=== PATIENT | male | born 1955 | race Asian ===

== ENCOUNTER 2016-12-12 08:18 | Outpatient (RCR) | payer MEDICARE | END 2016-12-27 | LOC: M PT 08:18 | PROVIDERS: ATTEND Orthopaedic Surgery | DX: Z51.89 Encounter for other specified aftercare (principal); S83.282A Other tear of lateral meniscus, current injury, left knee, initial encounter; S83.242A Other tear of medial meniscus, current injury, left knee, initial encounter; M17.12 Unilateral primary osteoarthritis, left knee; Y92.9 Unspecified place or not applicable | CPT/HCPCS: 97110; G8978; G8979; G8980 ==

== ENCOUNTER → 2017-03-28 | Outpatient (REF) | payer MEDICARE, MEDICAID ==
[2017-03-28 17:40] LABS: MEAN CORPUSCULAR HEMOGLOBIN 30.8 pg (27.0-33.0); MEAN CORPUSCULAR HGB CONC 33.1 g/dl (32.0-36.5); MEAN CORPUSCULAR VOLUME 92.9 fl (80.0-96.0); RED CELL DISTRIBUTION WIDTH 13.9 % (11.5-14.5); WHITE BLOOD COUNT 6.6 K/mm3 (4.0-10.0)
[2017-03-28 17:58] LABS: ALBUMIN/GLOBULIN RATIO 1.08 (1.00-1.93); BILIRUBIN,TOTAL 0.4 MG/DL (0.2-1.0); CALCIUM LEVEL 9.6 MG/DL (8.8-10.2); CREATININE FOR GFR 1.52 MG/DL (0.70-1.30); POTASSIUM SERUM 4.7 MEQ/L (3.5-5.1); TOTAL PROTEIN 7.7 GM/DL (6.4-8.2)
== END ==
LOC: M SFHCLERA 11:03
PROVIDERS: ATTEND Family Medicine
DX: I50.22 Chronic systolic (congestive) heart failure (principal); E11.22 Type 2 diabetes mellitus with diabetic chronic kidney disease; E11.69 Type 2 diabetes mellitus with other specified complication; E03.9 Hypothyroidism, unspecified
CPT/HCPCS: 80053; 80061; 83036; 83880; 84443; 85027; G0463

== ENCOUNTER → 2017-06-28 | Outpatient (REF) | payer MEDICARE, MEDICAID | LOC: M SFHCLERA 10:18 | PROVIDERS: ATTEND Family Medicine | DX: E11.22 Type 2 diabetes mellitus with diabetic chronic kidney disease (principal) | CPT/HCPCS: 83036; G0463 ==

== ENCOUNTER → 2017-12-14 | Outpatient (REF) | payer MEDICARE, MEDICAID ==
[2017-12-14 12:08] LABS: BASO # 0.1 10^3/uL (0.0-0.2); BASO % 0.4 % (0.0-1.0); EOS # 0.3 10^3/uL (0.0-0.50); EOS % 2.5 % (0.0-3.0); HEMATOCRIT 40.1 % (42.0-52.0); IMMATURE GRANULOCYTE # 0.3 10^3/uL (0-0); LYMPH # 2.4 10^3/uL (1.5-4.5); LYMPH % 19.7 % (24.0-44.0); MEAN CORPUSCULAR HEMOGLOBIN 28.6 pg (27.0-33.0); MEAN CORPUSCULAR HGB CONC 32.4 g/dl (32.0-36.5); MEAN CORPUSCULAR VOLUME 88.3 fl (80.0-96.0); MONO # 0.7 10^3/uL (0.0-0.8); MONO % 5.3 % (0.0-5.0); NEUTROPHILS # 8.7 10^3/uL (1.8-7.7); NEUTROPHILS % 70.1 % (36.0-66.0); PLATELET COUNT, AUTOMATED 415 10^3/uL (150-450); RED BLOOD COUNT 4.54 10^6/uL (4.30-6.10); RED CELL DISTRIBUTION WIDTH 13.8 % (11.5-14.5); WHITE BLOOD COUNT 12.4 10^3/uL (4.0-10.0)
[2017-12-14 12:26] LABS: ESTIMATED AVERAGE GLUCOSE 243 MG/DL (60-110); HEMOGLOBIN A1c 10.1 %
[2017-12-14 12:28] LABS: ALBUMIN 3.3 GM/DL (3.2-5.2); ALBUMIN/GLOBULIN RATIO 0.67 (1.00-1.93); ALKALINE PHOSPHATASE 121 U/L (45-117); ALT/SGPT 73 U/L (12-78); ANION GAP 9 MEQ/L (8-16); AST/SGOT 25 U/L (7-37); BILIRUBIN,TOTAL 0.3 MG/DL (0.2-1.0); BLOOD UREA NITROGEN 40 MG/DL (7-18); CALCIUM LEVEL 9.9 MG/DL (8.8-10.2); CARBON DIOXIDE LEVEL 27 MEQ/L (21-32); CHLORIDE LEVEL 100 MEQ/L (98-107); CHOLESTEROL LEVEL 157 MG/DL (<200); CHOLESTEROL RISK RATIO 4.906 (<5); CREATININE FOR GFR 1.66 MG/DL (0.70-1.30); GLOMERULAR FILTRATION RATE 45.2 (>49); GLUCOSE, FASTING 126 MG/DL (80-110); HDL CHOLESTEROL 32 MG/DL (>40); LDL CHOLESTEROL 82.2 MG/DL (<100); NON-HDL-C 125 MG/DL; SODIUM LEVEL 136 MEQ/L (136-145); TOTAL PROTEIN 8.2 GM/DL (6.4-8.2); TRIGLYCERIDES LEVEL 214 MG/DL (<150)
[2017-12-14 12:42] LABS: POTASSIUM SERUM 5.8 MEQ/L (3.5-5.1)
[2017-12-14 12:54] LABS: MALB URINE SIEMENS 6.7 MG/L; MAU/CREAT RATIO 4.3 MCG/MG (0.0-30.0)
== END ==
LOC: M SFHCLERA 09:17
DX: L03.312 Cellulitis of back [any part except buttock and flank] (principal); E11.65 Type 2 diabetes mellitus with hyperglycemia
CPT/HCPCS: 84443

== ENCOUNTER → 2017-12-15 | Outpatient (CLI) | payer MEDICARE, MEDICAID ==
[2017-12-15 09:46] LABS: POTASSIUM SERUM 4.8 MEQ/L (3.5-5.1)
== END ==
LOC: M LAB 08:55
DX: E87.5 Hyperkalemia (principal)
CPT/HCPCS: 84132

== ENCOUNTER → 2017-12-18 | Outpatient (REF) | payer MEDICARE, MEDICAID | LOC: M SFHCLERA 08:42 | DX: L03.312 Cellulitis of back [any part except buttock and flank] (principal); Z53.8 Procedure and treatment not carried out for other reasons ==

== ENCOUNTER → 2017-12-19 | Outpatient (CLI) | payer MEDICARE, MEDICAID ==
[2017-12-19 08:52] LABS: BASO % 0.4 % (0.0-1.0); EOS # 0.3 10^3/uL (0.0-0.50); HEMATOCRIT 38.1 % (42.0-52.0); HEMOGLOBIN 12.4 g/dl (14.0-18.0); IMMATURE GRANULOCYTE # 0.1 10^3/uL (0-0); IMMATURE GRANULOCYTE % 0.9 % (0-0); LYMPH # 2.2 10^3/uL (1.5-4.5); LYMPH % 23.6 % (24.0-44.0); MEAN CORPUSCULAR HEMOGLOBIN 28.5 pg (27.0-33.0); MEAN CORPUSCULAR HGB CONC 32.5 g/dl (32.0-36.5); MEAN CORPUSCULAR VOLUME 87.6 fl (80.0-96.0); MONO # 0.6 10^3/uL (0.0-0.8); MONO % 5.9 % (0.0-5.0); NEUTROPHILS # 6.2 10^3/uL (1.8-7.7); NEUTROPHILS % 66.2 % (36.0-66.0); PLATELET COUNT, AUTOMATED 399 10^3/uL (150-450); RED BLOOD COUNT 4.35 10^6/uL (4.30-6.10); RED CELL DISTRIBUTION WIDTH 13.9 % (11.5-14.5); WHITE BLOOD COUNT 9.3 10^3/uL (4.0-10.0)
== END ==
LOC: M RAD 07:32
DX: L03.312 Cellulitis of back [any part except buttock and flank] (principal); R60.0 Localized edema
CPT/HCPCS: 76604

== ENCOUNTER → 2017-12-25 | Outpatient (REF) | payer MEDICARE, MEDICAID ==
[2017-12-25 20:02] LABS: APPEARANCE, URINE CLOUDY (CLEAR); BACTERIA, URINE AUTO NEGATIVE (NEGATIVE); BILIRUBIN, URINE AUTO NEGATIVE (NEGATIVE); BLOOD, URINE BLOOD NEGATIVE (NEGATIVE); CALCIUM OXALATE CRYSTALS SMALL; COLOR, URINE YELLOW (YELLOW); GLUCOSE, URINE (UA) AUTO NEGATIVE (NEGATIVE); KETONE, URINE AUTO NEGATIVE (NEGATIVE); LEUKOCYTE ESTERASE, URINE AUTO NEGATIVE (NEGATIVE); MUCUS, URINE SMALL (NEGATIVE); NITRITE, URINE AUTO NEGATIVE (NEGATIVE); PROTEIN, URINE AUTO NEGATIVE (NEGATIVE); RBC, URINE AUTO 2 /HPF (0-3); SPECIFIC GRAVITY URINE AUTO 1.015 (1.002-1.035); SQUAMOUS EPITHELIAL CELL UR AU 8 /HPF (0-6); UROBILINOGEN, URINE AUTO 0.2 mg/dL (0.0-2.0); WBC, URINE AUTO 1 /HPF (0-3)
== END ==
LOC: M SFHCLERA 08:37
DX: N48.89 Other specified disorders of penis (principal); I10 Essential (primary) hypertension; R31.9 Hematuria, unspecified
CPT/HCPCS: 81001

== ENCOUNTER 2017-12-26 11:00 | Inpatient (IN) | payer MEDICARE, MEDICAID ==
[2017-12-26] MEDS: FINASTERIDE 5 MG TAB PO (09:00)
[2017-12-26 11:40] LABS: BASO % 0.6 % (0.0-1.0); EOS # 0.1 10^3/uL (0.0-0.50); HEMATOCRIT 35.5 % (42.0-52.0); HEMOGLOBIN 11.9 g/dl (14.0-18.0); IMMATURE GRANULOCYTE % 0.6 % (0-0); LYMPH # 1.8 10^3/uL (1.5-4.5); LYMPH % 27.8 % (24.0-44.0); MEAN CORPUSCULAR HEMOGLOBIN 29.5 pg (27.0-33.0); MEAN CORPUSCULAR HGB CONC 33.5 g/dl (32.0-36.5); MEAN CORPUSCULAR VOLUME 87.9 fl (80.0-96.0); MONO # 0.5 10^3/uL (0.0-0.8); MONO % 7.7 % (0.0-5.0); NEUTROPHILS % 61.3 % (36.0-66.0); PLATELET COUNT, AUTOMATED 358 10^3/uL (150-450); RED BLOOD COUNT 4.04 10^6/uL (4.30-6.10); RED CELL DISTRIBUTION WIDTH 14.5 % (11.5-14.5); WHITE BLOOD COUNT 6.6 10^3/uL (4.0-10.0)
[2017-12-26 12:11] LABS: ANION GAP 7 MEQ/L (8-16); BLOOD UREA NITROGEN 57 MG/DL (7-18); CALCIUM LEVEL 11.4 MG/DL (8.8-10.2); CARBON DIOXIDE LEVEL 27 MEQ/L (21-32); CHLORIDE LEVEL 99 MEQ/L (98-107); CREATININE FOR GFR 2.58 MG/DL (0.70-1.30); GLOMERULAR FILTRATION RATE 27.2 (>49); GLUCOSE, FASTING 127 MG/DL (70-100); MAGNESIUM LEVEL 2.3 MG/DL (1.8-2.4); POTASSIUM SERUM 4.8 MEQ/L (3.5-5.1); SODIUM LEVEL 133 MEQ/L (136-145)
[2017-12-26] MEDS ORDERED: ACETAMINOPHEN TAB 650MG DOSE (2X325MG) PO (13:15)
[2017-12-26] MEDS ORDERED: GLUCOSE 4 GM CHEW TABLET PO (13:30)
[2017-12-26] MEDS ORDERED: DEXTROSE 50% 50 ML SYRINGE IV (13:30)
[2017-12-26] MEDS ORDERED: GLUCAGON FOR INJ 1 MG VIAL (J1610) SC (13:30)
[2017-12-26] MEDS: NS 1,000 ML IV (13:33)
[2017-12-26 14:15] LABS: FERRITIN 539 NG/ML (26-388); FOLATE 9.5 NG/ML (>5.4); IRON (FE) 68 UG/DL (65-175); TOTAL IRON BINDING CAPACITY 340 UG/DL (250-450); VITAMIN B12 LEVEL 485 PG/ML (247-911)
[2017-12-26 14:20] LABS: CREATININE,RANDOM URINE 82.9 MG/DL
[2017-12-26 16:59] LABS: BEDSIDE GLUCOSE 282 MG/DL (80-115)
[2017-12-26] MEDS: HumaLOG INSULIN (NovoLOG) PER UNIT SC ×2 (17:33→20:55)
[2017-12-26 21:02] LABS: BEDSIDE GLUCOSE 213 MG/DL (80-115)
[2017-12-26] MEDS: TAMSULOSIN 0.4 MG CAP PO (21:11)
[2017-12-26] MEDS: ALLOPURINOL 300 MG TAB PO (21:11)
[2017-12-26] MEDS: METOPROLOL TART 50 MG TAB PO (21:11)
[2017-12-26] MEDS: GABAPENTIN 400 MG CAP PO (21:12)
[2017-12-27] MEDS: LEVOTHYROXINE 100MCG TABLET (0.1MG) PO (05:57)
[2017-12-27 06:07] LABS: BASO % 0.5 % (0.0-1.0); EOS # 0.3 10^3/uL (0.0-0.50); EOS % 4.4 % (0.0-3.0); HEMATOCRIT 34.6 % (42.0-52.0); HEMOGLOBIN 11.4 g/dl (14.0-18.0); IMMATURE GRANULOCYTE % 0.5 % (0-0); LYMPH # 2.7 10^3/uL (1.5-4.5); MEAN CORPUSCULAR HEMOGLOBIN 29.2 pg (27.0-33.0); MEAN CORPUSCULAR HGB CONC 32.9 g/dl (32.0-36.5); MEAN CORPUSCULAR VOLUME 88.5 fl (80.0-96.0); MONO # 0.5 10^3/uL (0.0-0.8); MONO % 7.7 % (0.0-5.0); NEUTROPHILS # 2.8 10^3/uL (1.8-7.7); NEUTROPHILS % 43.9 % (36.0-66.0); PLATELET COUNT, AUTOMATED 318 10^3/uL (150-450); RED BLOOD COUNT 3.91 10^6/uL (4.30-6.10); RED CELL DISTRIBUTION WIDTH 14.6 % (11.5-14.5); WHITE BLOOD COUNT 6.3 10^3/uL (4.0-10.0)
[2017-12-27 06:30] LABS: ALBUMIN 3.4 GM/DL (3.2-5.2); ALBUMIN/GLOBULIN RATIO 0.85 (1.00-1.93); ALKALINE PHOSPHATASE 54 U/L (45-117); ALT/SGPT 23 U/L (12-78); ANION GAP 5 MEQ/L (8-16); AST/SGOT 10 U/L (7-37); BILIRUBIN,TOTAL 0.3 MG/DL (0.2-1.0); BLOOD UREA NITROGEN 44 MG/DL (7-18); CALCIUM LEVEL 10.4 MG/DL (8.8-10.2); CARBON DIOXIDE LEVEL 28 MEQ/L (21-32); CHLORIDE LEVEL 104 MEQ/L (98-107); CREATININE FOR GFR 1.96 MG/DL (0.70-1.30); GLOMERULAR FILTRATION RATE 37.3 (>49); GLUCOSE, FASTING 129 MG/DL (70-100); MAGNESIUM LEVEL 2.3 MG/DL (1.8-2.4); POTASSIUM SERUM 4.6 MEQ/L (3.5-5.1); SODIUM LEVEL 137 MEQ/L (136-145); TOTAL PROTEIN 7.4 GM/DL (6.4-8.2)
[2017-12-27] MEDS: HumaLOG INSULIN (NovoLOG) PER UNIT SC ×4 (08:16→20:55)
[2017-12-27] MEDS: FINASTERIDE 5 MG TAB PO (08:17)
[2017-12-27] MEDS: LEVEMIR (INSULIN DETEMIR) 1 UNITS/0.01ML SC ×2 (08:17→21:00)
[2017-12-27] MEDS: ROSUVASTATIN 10 MG TAB (CRESTOR) PO (08:17)
[2017-12-27] MEDS: ALLOPURINOL 300 MG TAB PO ×2 (08:17→21:25)
[2017-12-27] MEDS: METOPROLOL TART 50 MG TAB PO ×2 (08:17→21:25)
[2017-12-27 09:23] LABS: PTH INTACT < 6.3 PG/ML (14.0-72.0)
[2017-12-27] MEDS: SENOKOT S TAB PO ×2 (10:26→21:26)
[2017-12-27] MEDS: NS 1,000 ML IV (10:26)
[2017-12-27 11:39] LABS: BEDSIDE GLUCOSE 248 MG/DL (80-115)
[2017-12-27 17:07] LABS: BEDSIDE GLUCOSE 210 MG/DL (80-115)
[2017-12-27 21:01] LABS: BEDSIDE GLUCOSE 195 MG/DL (80-115)
[2017-12-27] MEDS: GABAPENTIN 400 MG CAP PO (21:25)
[2017-12-27] MEDS: TAMSULOSIN 0.4 MG CAP PO (21:25)
[2017-12-28 05:57] LABS: BASO % 0.1 % (0.0-1.0); EOS # 0.3 10^3/uL (0.0-0.50); HEMATOCRIT 33.8 % (42.0-52.0); IMMATURE GRANULOCYTE % 0.4 % (0-0); LYMPH % 28.9 % (24.0-44.0); MEAN CORPUSCULAR HEMOGLOBIN 29.2 pg (27.0-33.0); MEAN CORPUSCULAR HGB CONC 32.5 g/dl (32.0-36.5); MEAN CORPUSCULAR VOLUME 89.7 fl (80.0-96.0); MONO # 0.5 10^3/uL (0.0-0.8); MONO % 6.8 % (0.0-5.0); NEUTROPHILS % 58.8 % (36.0-66.0); PLATELET COUNT, AUTOMATED 288 10^3/uL (150-450); RED BLOOD COUNT 3.77 10^6/uL (4.30-6.10); RED CELL DISTRIBUTION WIDTH 14.8 % (11.5-14.5); WHITE BLOOD COUNT 6.8 10^3/uL (4.0-10.0)
[2017-12-28 06:06] LABS: INR 0.92; PROTHROMBIN TIME 12.4 SECONDS (12.4-14.5)
[2017-12-28 06:07] LABS: PARTIAL THROMBOPLASTIN TIME 29.4 SECONDS (26.8-37.9)
[2017-12-28] MEDS: HEPARIN SOD (PORCINE) 5000 UNITS/ML VIAL SQ (06:17)
[2017-12-28] MEDS: LEVOTHYROXINE 100MCG TABLET (0.1MG) PO (06:17)
[2017-12-28 06:22] LABS: ALBUMIN 3.4 GM/DL (3.2-5.2); ALBUMIN/GLOBULIN RATIO 0.97 (1.00-1.93); ALKALINE PHOSPHATASE 50 U/L (45-117); ALT/SGPT 23 U/L (12-78); ANION GAP 7 MEQ/L (8-16); AST/SGOT 10 U/L (7-37); BILIRUBIN,TOTAL 0.2 MG/DL (0.2-1.0); BLOOD UREA NITROGEN 34 MG/DL (7-18); CALCIUM LEVEL 9.9 MG/DL (8.8-10.2); CARBON DIOXIDE LEVEL 26 MEQ/L (21-32); CHLORIDE LEVEL 108 MEQ/L (98-107); CREATININE FOR GFR 1.68 MG/DL (0.70-1.30); GLOMERULAR FILTRATION RATE 44.6 (>49); GLUCOSE, FASTING 118 MG/DL (70-100); MAGNESIUM LEVEL 2.2 MG/DL (1.8-2.4); POTASSIUM SERUM 4.4 MEQ/L (3.5-5.1); SODIUM LEVEL 141 MEQ/L (136-145); TOTAL PROTEIN 6.9 GM/DL (6.4-8.2)
[2017-12-28] MEDS: HumaLOG INSULIN (NovoLOG) PER UNIT SC (07:30)
[2017-12-28] MEDS: FINASTERIDE 5 MG TAB PO (08:15)
[2017-12-28] MEDS: ROSUVASTATIN 10 MG TAB (CRESTOR) PO (08:15)
[2017-12-28] MEDS: SENOKOT S TAB PO (08:15)
[2017-12-28] MEDS: ALLOPURINOL 300 MG TAB PO (08:15)
[2017-12-28] MEDS: METOPROLOL TART 50 MG TAB PO (08:15)
[2017-12-28] MEDS: LEVEMIR (INSULIN DETEMIR) 1 UNITS/0.01ML SC (08:16)
[2017-12-28 09:34] LABS: TOTAL 25(OH) VITAMIN D 22.9 NG/ML (30.0-100.0)
[2017-12-28] MEDS: FUROSEMIDE 40 MG TAB PO (10:11)
[2017-12-28 11:56] LABS: BEDSIDE GLUCOSE 218 MG/DL (80-115)
[2018-01-02 00:07] LABS: PTH RELATED PEPTIDE < 1.1 pmol/L (.)
[2018-01-02 00:07] LABS: VITAMIN D 1,25 DIHYDROXY 29.5 pg/mL (19.9-79.3)
== END 2017-12-28 12:26 | disposition home or self-care (01) | DRG 683 ==
LOC: M ED 11:00 → M ED INP 13:08 → M MSPAV 15:59
DX: N17.9 Acute kidney failure, unspecified (principal); I13.0 Hypertensive heart and chronic kidney disease with heart failure and stage 1 through stage 4 chronic kidney disease, or unspecified chronic kidney disease; Z68.42 Body mass index [BMI] 45.0-49.9, adult; L02.212 Cutaneous abscess of back [any part, except buttock and flank]; E87.1 Hypo-osmolality and hyponatremia; I50.9 Heart failure, unspecified; M10.9 Gout, unspecified; N40.0 Benign prostatic hyperplasia without lower urinary tract symptoms; I25.10 Atherosclerotic heart disease of native coronary artery without angina pectoris; E78.5 Hyperlipidemia, unspecified; E11.22 Type 2 diabetes mellitus with diabetic chronic kidney disease; E03.9 Hypothyroidism, unspecified; E83.52 Hypercalcemia; N18.3 Chronic kidney disease, stage 3 (moderate); E66.01 Morbid (severe) obesity due to excess calories; M94.262 Chondromalacia, left knee; D63.1 Anemia in chronic kidney disease; K59.00 Constipation, unspecified; M17.11 Unilateral primary osteoarthritis, right knee; M19.071 Primary osteoarthritis, right ankle and foot; R26.81 Unsteadiness on feet; Z79.4 Long term (current) use of insulin; Z79.899 Other long term (current) drug therapy; T36.8X5A Adverse effect of other systemic antibiotics, initial encounter

== ENCOUNTER → 2017-12-26 | Outpatient (CLI) | payer MEDICARE, MEDICAID ==
[2017-12-26 08:58] LABS: HEMOGLOBIN 12.4 g/dl (14.0-18.0); MEAN CORPUSCULAR HEMOGLOBIN 28.8 pg (27.0-33.0); MEAN CORPUSCULAR HGB CONC 32.6 g/dl (32.0-36.5); MEAN CORPUSCULAR VOLUME 88.2 fl (80.0-96.0); PLATELET COUNT, AUTOMATED 343 10^3/uL (150-450); RED BLOOD COUNT 4.31 10^6/uL (4.30-6.10); RED CELL DISTRIBUTION WIDTH 14.6 % (11.5-14.5); WHITE BLOOD COUNT 7.4 10^3/uL (4.0-10.0)
[2017-12-26 09:18] LABS: ANION GAP 9 MEQ/L (8-16); BLOOD UREA NITROGEN 55 MG/DL (7-18); CARBON DIOXIDE LEVEL 26 MEQ/L (21-32); CHLORIDE LEVEL 100 MEQ/L (98-107); CREATININE FOR GFR 2.52 MG/DL (0.70-1.30); GLOMERULAR FILTRATION RATE 27.9 (>49); GLUCOSE, FASTING 79 MG/DL (70-100); POTASSIUM SERUM 4.2 MEQ/L (3.5-5.1); SODIUM LEVEL 135 MEQ/L (136-145)
[2017-12-26 09:48] LABS: APPEARANCE, URINE CLEAR (CLEAR); BACTERIA, URINE AUTO NEGATIVE (NEGATIVE); BILIRUBIN, URINE AUTO NEGATIVE (NEGATIVE); BLOOD, URINE BLOOD NEGATIVE (NEGATIVE); COLOR, URINE YELLOW (YELLOW); GLUCOSE, URINE (UA) AUTO NEGATIVE (NEGATIVE); KETONE, URINE AUTO NEGATIVE (NEGATIVE); LEUKOCYTE ESTERASE, URINE AUTO NEGATIVE (NEGATIVE); MUCUS, URINE SMALL (NEGATIVE); NITRITE, URINE AUTO NEGATIVE (NEGATIVE); PROTEIN, URINE AUTO NEGATIVE (NEGATIVE); RBC, URINE AUTO 1 /HPF (0-3); SPECIFIC GRAVITY URINE AUTO 1.014 (1.002-1.035); SQUAMOUS EPITHELIAL CELL UR AU 3 /HPF (0-6); UROBILINOGEN, URINE AUTO 0.2 mg/dL (0.0-2.0); WBC, URINE AUTO 0 /HPF (0-3)
== END ==
LOC: M LAB 08:06
DX: I10 Essential (primary) hypertension (principal); N48.89 Other specified disorders of penis; R31.9 Hematuria, unspecified

== ENCOUNTER → 2018-01-02 | Outpatient (REF) | payer MEDICARE, MEDICAID | LOC: M SFHCLERA 09:06 | DX: E83.52 Hypercalcemia (principal); Z53.8 Procedure and treatment not carried out for other reasons ==

== ENCOUNTER → 2018-01-04 | Outpatient (CLI) | payer MEDICARE, MEDICAID ==
[2018-01-04 08:47] LABS: IONIZED CALCIUM 4.7 MG/DL (4.5-5.3)
[2018-01-04 09:20] LABS: ANION GAP 6 MEQ/L (8-16); BLOOD UREA NITROGEN 26 MG/DL (7-18); CARBON DIOXIDE LEVEL 29 MEQ/L (21-32); CHLORIDE LEVEL 106 MEQ/L (98-107); CREATININE FOR GFR 1.24 MG/DL (0.70-1.30); GLOMERULAR FILTRATION RATE > 60.0 (>49); GLUCOSE, FASTING 85 MG/DL (70-100); POTASSIUM SERUM 4.4 MEQ/L (3.5-5.1); SODIUM LEVEL 141 MEQ/L (136-145)
[2018-01-04 13:46] LABS: PTH INTACT 10.3 PG/ML (18.5-88.0)
== END ==
LOC: M LAB 08:16
DX: E83.52 Hypercalcemia (principal)
CPT/HCPCS: 82330

== ENCOUNTER → 2018-01-11 | Outpatient (REF) | payer MEDICARE, MEDICAID | LOC: M SFHCLERA 09:06 | DX: R79.89 Other specified abnormal findings of blood chemistry (principal); I50.32 Chronic diastolic (congestive) heart failure ==

== ENCOUNTER → 2018-01-23 | Outpatient (CLI) | payer MEDICARE, MEDICAID ==
[2018-01-23 08:27] LABS: IONIZED CALCIUM 4.8 MG/DL (4.5-5.3)
[2018-01-23 08:54] LABS: ANION GAP 9 MEQ/L (8-16); BLOOD UREA NITROGEN 30 MG/DL (7-18); CALCIUM LEVEL 9.4 MG/DL (8.8-10.2); CARBON DIOXIDE LEVEL 30 MEQ/L (21-32); CHLORIDE LEVEL 100 MEQ/L (98-107); CREATININE FOR GFR 1.38 MG/DL (0.70-1.30); GLUCOSE, FASTING 159 MG/DL (70-100); NT-PRO BNP 84 PG/ML (<125); POTASSIUM SERUM 4.2 MEQ/L (3.5-5.1); SODIUM LEVEL 139 MEQ/L (136-145)
== END ==
LOC: M LAB 08:02
DX: I50.32 Chronic diastolic (congestive) heart failure (principal); R79.89 Other specified abnormal findings of blood chemistry
CPT/HCPCS: 82330

== ENCOUNTER → 2018-02-01 | Outpatient (REF) | payer MEDICARE, MEDICAID | LOC: M SFHCLERA 08:42 | DX: I50.32 Chronic diastolic (congestive) heart failure (principal) ==

== ENCOUNTER → 2018-02-06 | Outpatient (CLI) | payer MEDICARE, MEDICAID ==
[2018-02-06 09:07] LABS: ANION GAP 8 MEQ/L (8-16); BLOOD UREA NITROGEN 24 MG/DL (7-18); CALCIUM LEVEL 8.7 MG/DL (8.8-10.2); CARBON DIOXIDE LEVEL 30 MEQ/L (21-32); CHLORIDE LEVEL 102 MEQ/L (98-107); CREATININE FOR GFR 1.32 MG/DL (0.70-1.30); GLOMERULAR FILTRATION RATE 58.9 (>49); GLUCOSE, FASTING 105 MG/DL (70-100); POTASSIUM SERUM 3.8 MEQ/L (3.5-5.1); SODIUM LEVEL 140 MEQ/L (136-145)
== END ==
LOC: M LAB 07:56
DX: I50.32 Chronic diastolic (congestive) heart failure (principal)
CPT/HCPCS: 80048

== ENCOUNTER → 2018-03-08 | Outpatient (CLI) | payer MEDICARE, MEDICAID ==
[2018-03-08 10:35] LABS: ANION GAP 7 MEQ/L (8-16); BLOOD UREA NITROGEN 26 MG/DL (7-18); CALCIUM LEVEL 9.5 MG/DL (8.8-10.2); CARBON DIOXIDE LEVEL 31 MEQ/L (21-32); CHLORIDE LEVEL 103 MEQ/L (98-107); CREATININE FOR GFR 1.33 MG/DL (0.70-1.30); GLOMERULAR FILTRATION RATE 58.2 (>49); GLUCOSE, FASTING 189 MG/DL (70-100); SODIUM LEVEL 141 MEQ/L (136-145)
[2018-03-08 10:42] LABS: ESTIMATED AVERAGE GLUCOSE 192 MG/DL (60-110); HEMOGLOBIN A1c 8.3 %
== END ==
LOC: M LAB 09:38
DX: E11.22 Type 2 diabetes mellitus with diabetic chronic kidney disease (principal); I50.32 Chronic diastolic (congestive) heart failure
CPT/HCPCS: 83036

== ENCOUNTER → 2018-07-05 | Outpatient (REF) | payer MEDICARE, MEDICAID ==
[2018-07-05 12:56] LABS: ANION GAP 8 MEQ/L (8-16); BLOOD UREA NITROGEN 31 MG/DL (7-18); CALCIUM LEVEL 10.3 MG/DL (8.8-10.2); CARBON DIOXIDE LEVEL 31 MEQ/L (21-32); CHLORIDE LEVEL 102 MEQ/L (98-107); CREATININE FOR GFR 1.29 MG/DL (0.70-1.30); GLOMERULAR FILTRATION RATE > 60.0 (>49); GLUCOSE, FASTING 141 MG/DL (70-100); POTASSIUM SERUM 4.2 MEQ/L (3.5-5.1); SODIUM LEVEL 141 MEQ/L (136-145)
[2018-07-05 14:04] LABS: ESTIMATED AVERAGE GLUCOSE 237 MG/DL (60-110); HEMOGLOBIN A1c 9.9 %
== END ==
LOC: M SFHCLERA 08:54
DX: I50.32 Chronic diastolic (congestive) heart failure (principal); E11.22 Type 2 diabetes mellitus with diabetic chronic kidney disease
CPT/HCPCS: 83036

== ENCOUNTER → 2018-11-02 | Outpatient (CLI) | payer MEDICARE, MEDICAID ==
[2018-11-02 11:50] LABS: BASO % 0.2 % (0.0-1.0); EOS # 0.2 10^3/uL (0.0-0.50); EOS % 2.1 % (0.0-3.0); HEMATOCRIT 45.3 % (42.0-52.0); HEMOGLOBIN 15.1 g/dl (13.5-17.5); IMMATURE GRANULOCYTE % 0.5 % (0-3.0); LYMPH # 3.1 10^3/uL (1.5-4.5); MEAN CORPUSCULAR HEMOGLOBIN 28.5 pg (27.0-33.0); MEAN CORPUSCULAR HGB CONC 33.3 g/dl (32.0-36.5); MEAN CORPUSCULAR VOLUME 85.6 fl (80.0-96.0); MONO # 0.6 10^3/uL (0.0-0.8); MONO % 6.8 % (0.0-5.0); NEUTROPHILS # 4.7 10^3/uL (1.8-7.7); NEUTROPHILS % 54.4 % (36.0-66.0); PLATELET COUNT, AUTOMATED 259 10^3/uL (150-450); RED BLOOD COUNT 5.29 10^6/uL (4.30-6.10); RED CELL DISTRIBUTION WIDTH 13.9 % (11.5-14.5); WHITE BLOOD COUNT 8.6 10^3/uL (4.0-10.0)
[2018-11-02 12:15] LABS: ESTIMATED AVERAGE GLUCOSE 235 MG/DL (60-110); HEMOGLOBIN A1c 9.8 %
[2018-11-02 12:38] LABS: ALBUMIN 3.7 GM/DL (3.2-5.2); ALBUMIN/GLOBULIN RATIO 0.95 (1.00-1.93); ALKALINE PHOSPHATASE 77 U/L (45-117); ALT/SGPT 28 U/L (12-78); ANION GAP 10 MEQ/L (8-16); AST/SGOT 13 U/L (7-37); BILIRUBIN,TOTAL 0.4 MG/DL (0.2-1.0); BLOOD UREA NITROGEN 23 MG/DL (7-18); CALCIUM LEVEL 9.4 MG/DL (8.8-10.2); CARBON DIOXIDE LEVEL 29 MEQ/L (21-32); CHLORIDE LEVEL 102 MEQ/L (98-107); CHOLESTEROL LEVEL 169 MG/DL (<200); CHOLESTEROL RISK RATIO 4.694 (<5); CREATININE FOR GFR 1.18 MG/DL (0.70-1.30); GLOMERULAR FILTRATION RATE > 60.0 (>49); GLUCOSE, FASTING 104 MG/DL (70-100); HDL CHOLESTEROL 36 MG/DL (>40); LDL CHOLESTEROL 86 MG/DL (<100); NON-HDL-C 133 MG/DL; SODIUM LEVEL 141 MEQ/L (136-145); TOTAL PROTEIN 7.6 GM/DL (6.4-8.2); TRIGLYCERIDES LEVEL 235 MG/DL (<150)
[2018-11-02 12:39] LABS: MAU/CREAT RATIO 216.9 MCG/MG (0.0-30.0)
== END ==
LOC: M LAB 11:11
DX: E11.22 Type 2 diabetes mellitus with diabetic chronic kidney disease (principal)
CPT/HCPCS: 84443

== ENCOUNTER → 2018-11-06 | Outpatient (CLI) | payer MEDICARE, MEDICAID ==
[~2018-11-06] MED LIST: BACT800T5 PO; BIMA01SOL OU; CLOP75TA2 PO; FENO54TA2 PO; FINA5TAB2 PO; FLOM0.4C39 PO; FURO40TA2 PO; GABA-845 PO; GLIP10TA6 PO; HUMU500S2 SC; INSULANT SC; KEFL500C17 PO; LEVO100T5 PO; LOSA50TA73 PO; METO50TA7 PO; MUPI2OI EXT; ROSU10TA5 PO; SPIR-10 PO; ZYLO300T6 PO
--- NOTE | 2018-11-06 12:59 | REP ---
ULTRASOUND POSTERIOR CHEST WALL: Real-time sonographic evaluation of the posterior chest wall performed at the site of the swelling, where an abscess was previously drained about 1 year ago. There is a recurrence of a palpable lump at this location. There is a large complex collection with soft tissue component, some fluid and floating debris. There is internal blood flow in portions of the complex collection. It measures 9.0 x 3.8 x 10.0 cm. This could represent phlegmonous change or a complex postoperative chronic hematoma. I do not see a discrete walled off abscess, although given the presence of complex fluid within this area underlying infection or developing abscess is not excluded. Electronically Signed by David Do MD 11/06/2018 03:45 P
== END ==
LOC: M RAD 11:34
PROVIDERS: ATTEND Family Medicine
DX: R22.2 Localized swelling, mass and lump, trunk (principal)
CPT/HCPCS: 76604; 90682; G0008; G0463

== ENCOUNTER 2018-12-14 09:11 | Inpatient (IN) | payer MEDICARE, MEDICAID ==
[~2018-12-14] VITALS: Ht 172.7 cm; Wt 126.1 kg
[~2018-12-14 09:11] MED LIST changes: +ASPI1TAB PO; -LOSA50TA73 PO; +LOSA50TA88 PO; +LR 1,000 ML IV SCH
[2018-12-14] MEDS ORDERED: METOPROLOL TART 50 MG TAB PO ONE (11:00)
[2018-12-14] MEDS ORDERED: LIDOCAINE 1% SDV INJ 30 ML VIAL As Ordered ONE (11:01)
[2018-12-14] MEDS ORDERED: BUPIVACAINE HCL 0.25% 30 ML VIAL As Ordered ONE (11:01)
[2018-12-14] MEDS ORDERED: MIDAZOLAM INJ 2 MG/2 ML VIAL (J2250) As Ordered ONE ×2 (12:00→12:36)
[2018-12-14] MEDS ORDERED: PHENYLephrine HCL 500 MCG/5 ML (100MCG/ML) SYRINGE (J2370) As Ordered ONE (12:00)
[2018-12-14] MEDS ORDERED: ePHEDrine SULFATE 25 MG/5 ML(5MG/ML) SYRINGE As Ordered ONE (12:00)
[2018-12-14] MEDS ORDERED: PROPOFOL 200 MG/20 ML VIAL As Ordered ONE (12:00)
[2018-12-14] MEDS ORDERED: LIDOCAINE 2% INJ 100 MG/5 ML SDV (FOR ANES.) As Ordered ONE (12:00)
[2018-12-14] MEDS ORDERED: fentaNYL 100 MCG/2 ML INJECTION (J3010) As Ordered ONE (12:00)
[2018-12-14] MEDS ORDERED: VASOPRESSIN INJ 20 UNITS/ML VIAL As Ordered ONE (12:27)
[2018-12-14] MEDS ORDERED: KETAMINE HCL 200 MG/20 ML VIAL As Ordered ONE (12:34)
[2018-12-14] MEDS: BUPIVACAINE HCL 0.25% 10 ML VIAL As Ordered ONE ×2 (12:40→12:58)
[2018-12-14] MEDS: BUPIVACAINE LIPOSOME/PF 1.3% 20ML VIAL (13.3MG/ML)(EXPAREL)(C9290 PER1MG) As Ordered ONE ×2 (12:40→12:58)
[2018-12-14] MEDS ORDERED: MORPHINE 4 MG/ML 1ML VIAL/SYRINGE (J2270) IV PRN (13:15)
[2018-12-14] MEDS ORDERED: GLUCOSE 4 GM CHEW TABLET PO PRN (13:15)
[2018-12-14] MEDS ORDERED: ONDANSETRON 4MG/2ML VIAL (J2405) IV PRN ×2 (13:15→13:45)
[2018-12-14] MEDS ORDERED: DEXTROSE 50% 50 ML SYRINGE IV PRN (13:15)
[2018-12-14] MEDS ORDERED: GLUCAGON FOR INJ 1 MG VIAL (J1610) SC PRN (13:15)
[2018-12-14] MEDS ORDERED: PERCOCET 5MG/325MG TAB PO PRN ×3 (13:15→13:45)
[2018-12-14] MEDS ORDERED: ACETAMINOPHEN TAB 650MG DOSE (2X325MG) PO PRN (13:15)
[2018-12-14] MEDS ORDERED: METOCLOPRAMIDE INJ 10MG/2ML VIAL (J2765) IV PRN (13:45)
[2018-12-14] MEDS ORDERED: fentaNYL 100 MCG/2 ML INJECTION (J3010) IV PRN (13:45)
[2018-12-14] MEDS ORDERED: LR 1,000 ML IV SCH (13:45)
[2018-12-14 14:02] VITALS: BP 116/68
[2018-12-14] MEDS: SPIRONOLACTONE 25 MG TAB PO SCH (15:02)
[2018-12-14] MEDS: LEVOTHYROXINE 100MCG TABLET (0.1MG) PO SCH (15:02)
[2018-12-14] MEDS: ENOXAPARIN 40 MG/0.4 ML SYRINGE (J1650) SC SCH (15:02)
[2018-12-14] MEDS: ALLOPURINOL 300 MG TAB PO SCH (15:02)
[2018-12-14] MEDS: FINASTERIDE 5 MG TAB PO SCH (15:02)
[2018-12-14] MEDS: ASPIRIN 81 MG ENTERIC TAB PO SCH (15:02)
[2018-12-14] MEDS: ROSUVASTATIN 10 MG TAB (CRESTOR) PO SCH (15:02)
[2018-12-14] MEDS: FUROSEMIDE 40 MG TAB PO SCH (17:03)
[2018-12-14] MEDS: LEVEMIR (INSULIN DETEMIR) 1 UNITS/0.01ML SC SCH (20:22)
[2018-12-14] MEDS: SENOKOT S TAB PO SCH (20:23)
[2018-12-14] MEDS: METOPROLOL TART 50 MG TAB PO SCH (20:23)
[2018-12-14] MEDS: TAMSULOSIN 0.4 MG CAP PO SCH (20:23)
[2018-12-14] MEDS: GABAPENTIN 400 MG CAP PO SCH (20:23)
[2018-12-14 22:00] VITALS: BP 136/83
[2018-12-15] MEDS: LEVOTHYROXINE 100MCG TABLET (0.1MG) PO SCH (05:35)
[2018-12-15 06:00] VITALS: BP 125/70
[2018-12-15 06:22] LABS: BASO % 0.4 % (0.0-1.0); EOS # 0.1 10^3/uL (0.0-0.50); EOS % 1.7 % (0.0-3.0); HEMATOCRIT 41.5 % (42.0-52.0); HEMOGLOBIN 13.4 g/dl (13.5-17.5); LYMPH # 2.9 10^3/uL (1.5-4.5); LYMPH % 35.6 % (24.0-44.0); MEAN CORPUSCULAR HEMOGLOBIN 28.6 pg (27.0-33.0); MEAN CORPUSCULAR HGB CONC 32.3 g/dl (32.0-36.5); MEAN CORPUSCULAR VOLUME 88.5 fl (80.0-96.0); MONO # 0.5 10^3/uL (0.0-0.8); MONO % 5.9 % (0.0-5.0); NEUTROPHILS # 4.5 10^3/uL (1.8-7.7); NEUTROPHILS % 55.9 % (36.0-66.0); PLATELET COUNT, AUTOMATED 260 10^3/uL (150-450); RED BLOOD COUNT 4.69 10^6/uL (4.30-6.10); WHITE BLOOD COUNT 8.1 10^3/uL (4.0-10.0)
[2018-12-15 06:46] LABS: BLOOD UREA NITROGEN 22 MG/DL (7-18); C REACTIVE PROTEIN QUANTITATIV 0.76 MG/DL (0.00-0.30); CALCIUM LEVEL 8.8 MG/DL (8.8-10.2); CARBON DIOXIDE LEVEL 29 MEQ/L (21-32); CHLORIDE LEVEL 103 MEQ/L (98-107); CREATININE FOR GFR 1.22 MG/DL (0.70-1.30); GLOMERULAR FILTRATION RATE > 60.0 (>49); GLUCOSE, FASTING 103 MG/DL (70-100); POTASSIUM SERUM 3.9 MEQ/L (3.5-5.1); SODIUM LEVEL 141 MEQ/L (136-145)
--- NOTE | 2018-12-15 08:55 | IPNPDOC ---
Text Note Date of Service The patient was seen on 12/15/18. NOTE No acute events overnight. Denies any problems with nausea, emesis, fevers, or pain. He is tolerating the wound vac without any problems. VSSAF NAD skin - wound vac on middle upper back in place without any signs of leak, and minimal drainage A) POD#1 s/p excision of infected sebaceous cyst and wound vac placement P) reg diet ambulate watch over the weekend with the wound vac in place, and plan on d/c home Monday or monday once wound care is set up. Luis Boyd DO VS,Fishbone, I+O VS, Fishbone, I+O Laboratory Tests 12/15/18 05:48 Red Blood Count 4.69, Mean Corpuscular Volume 88.5, Mean Corpuscular Hemoglobin 28.6, Mean Corpuscular Hemoglobin Concent 32.3, Red Cell Distribution Width 14.0, Neutrophils (%) (Auto) 55.9, Lymphocytes (%) (Auto) 35.6, Monocytes (%) (Auto) 5.9 H, Eosinophils (%) (Auto) 1.7, Basophils (%) (Auto) 0.4, Neutrophils # (Auto) 4.5, Lymphocytes # (Auto) 2.9, Monocytes # (Auto) 0.5, Eosinophils # (Auto) 0.1, Basophils # (Auto) 0.0, Calcium Level 8.8 Vital Signs Date Time Temp Pulse Resp B/P (MAP) Pulse Ox O2 Delivery O2 Flow Rate FiO2 12/15/18 06:00 97.0 76 18 125/70 (88) 96 12/14/18 13:55 Room Air I&O- Last 24 Hours up to 6 AM 12/15/18 06:00 Intake Total 2150 ml Output Total 300 ml Balance 1850 ml ALVARO BOYD DO Dec 15, 2018 08:55
[2018-12-15] MEDS: LEVEMIR (INSULIN DETEMIR) 1 UNITS/0.01ML SC SCH ×2 (09:00→21:24)
[2018-12-15] MEDS: ENOXAPARIN 40 MG/0.4 ML SYRINGE (J1650) SC SCH (10:23)
[2018-12-15] MEDS: FINASTERIDE 5 MG TAB PO SCH (10:23)
[2018-12-15] MEDS: ROSUVASTATIN 10 MG TAB (CRESTOR) PO SCH (10:23)
[2018-12-15] MEDS: SENOKOT S TAB PO SCH ×2 (10:23→21:25)
[2018-12-15] MEDS: ALLOPURINOL 300 MG TAB PO SCH (10:24)
[2018-12-15] MEDS: SPIRONOLACTONE 25 MG TAB PO SCH (10:24)
[2018-12-15] MEDS: FUROSEMIDE 40 MG TAB PO SCH ×2 (10:24→18:05)
[2018-12-15] MEDS: METOPROLOL TART 50 MG TAB PO SCH ×2 (10:24→21:25)
[2018-12-15] MEDS: ASPIRIN 81 MG ENTERIC TAB PO SCH (10:24)
[2018-12-15 14:00] VITALS: BP 125/68
[2018-12-15 18:00] VITALS: BP 139/83
[2018-12-15] MEDS: TAMSULOSIN 0.4 MG CAP PO SCH (21:25)
[2018-12-15] MEDS: GABAPENTIN 400 MG CAP PO SCH (21:25)
[2018-12-15 22:00] VITALS: BP 146/99
[2018-12-16] MEDS: LEVOTHYROXINE 100MCG TABLET (0.1MG) PO SCH (05:49)
[2018-12-16 06:00] VITALS: BP 132/65
[2018-12-16] MEDS: METOPROLOL TART 50 MG TAB PO SCH ×2 (08:29→21:51)
[2018-12-16] MEDS: ALLOPURINOL 300 MG TAB PO SCH (08:30)
[2018-12-16] MEDS: FINASTERIDE 5 MG TAB PO SCH (08:30)
[2018-12-16] MEDS: FUROSEMIDE 40 MG TAB PO SCH ×2 (08:30→17:00)
[2018-12-16] MEDS: SENOKOT S TAB PO SCH ×2 (08:30→21:49)
[2018-12-16] MEDS: SPIRONOLACTONE 25 MG TAB PO SCH (08:30)
[2018-12-16] MEDS: ASPIRIN 81 MG ENTERIC TAB PO SCH (08:30)
[2018-12-16] MEDS: ENOXAPARIN 40 MG/0.4 ML SYRINGE (J1650) SC SCH (08:30)
[2018-12-16] MEDS: ROSUVASTATIN 10 MG TAB (CRESTOR) PO SCH (08:30)
[2018-12-16] MEDS: LEVEMIR (INSULIN DETEMIR) 1 UNITS/0.01ML SC SCH ×2 (08:31→21:50)
--- NOTE | 2018-12-16 09:02 | IPNPDOC ---
Text Note Date of Service The patient was seen on 12/16/18. NOTE No acute events overnight. Denies any problems with nausea, emesis, fevers, or pain. He is tolerating the wound vac without any problems. VSSAF NAD skin - wound vac on middle upper back in place without any signs of leak, and minimal drainage A) POD#2 s/p excision of infected sebaceous cyst and wound vac placement P) reg diet encouraged ambulation continue wound vac, and plan on d/c home Monday or monday once wound care is set up. Luis Boyd DO VS,Fishbone, I+O VS, Fishbone, I+O Vital Signs Date Time Temp Pulse Resp B/P (MAP) Pulse Ox O2 Delivery O2 Flow Rate FiO2 12/16/18 08:29 68 132/65 12/16/18 06:00 97.0 18 92 Room Air I&O- Last 24 Hours up to 6 AM 12/16/18 06:00 Intake Total 1900 ml Output Total 0 ml Balance 1900 ml ALVARO BOYD DO Dec 16, 2018 09:02
[2018-12-16 14:00] VITALS: BP 136/79
[2018-12-16] MEDS: GABAPENTIN 400 MG CAP PO SCH (21:49)
[2018-12-16] MEDS: TAMSULOSIN 0.4 MG CAP PO SCH (21:49)
[2018-12-16 22:00] VITALS: BP 127/68
[2018-12-17 06:00] VITALS: BP 115/60
[2018-12-17] MEDS: LEVOTHYROXINE 100MCG TABLET (0.1MG) PO SCH (06:08)
[2018-12-17] MEDS: ENOXAPARIN 40 MG/0.4 ML SYRINGE (J1650) SC SCH (09:54)
[2018-12-17] MEDS: LEVEMIR (INSULIN DETEMIR) 1 UNITS/0.01ML SC SCH ×2 (09:54→21:50)
[2018-12-17] MEDS: FUROSEMIDE 40 MG TAB PO SCH ×2 (09:55→17:41)
[2018-12-17] MEDS: SPIRONOLACTONE 25 MG TAB PO SCH (09:55)
[2018-12-17] MEDS: SENOKOT S TAB PO SCH ×2 (09:55→21:49)
[2018-12-17] MEDS: METOPROLOL TART 50 MG TAB PO SCH ×2 (09:55→21:50)
[2018-12-17] MEDS: ALLOPURINOL 300 MG TAB PO SCH (09:55)
[2018-12-17] MEDS: FINASTERIDE 5 MG TAB PO SCH (09:55)
[2018-12-17] MEDS: ASPIRIN 81 MG ENTERIC TAB PO SCH (09:55)
[2018-12-17] MEDS: ROSUVASTATIN 10 MG TAB (CRESTOR) PO SCH (09:56)
--- NOTE | 2018-12-17 11:46 | IPNPDOC ---
Subjective General Date/Time Seen The patient was seen on 12/17/18 at 11:21. Subject Chief Complaint/History The patient is a 63-year-old male admitted following excision and debridement of infected sebaceous cyst with placement of woundvac No events reported over the weekend. Patient reports he is comfortable with the wound VAC. I changed the wound VAC and examined the wound today. Current Medications Current Medications Current Medications Acetaminophen (Tylenol Tab) 650 mg Q4HP PRN PO MILD PAIN or TEMP > 101; Start 12/14/18 at 13:15 Allopurinol (Zyloprim) 300 mg DAILY PO Last administered on 12/17/18at 09:55; Start 12/14/18 at 09:00 Aspirin (Ecotrin) 81 mg DAILY PO Last administered on 12/17/18at 09:55; Start 12/14/18 at 09:00 Cefazolin Sodium/ Dextrose 2 gm/IV Miscellaneous Supplies 50 ml @ 75 mls/hr Q8H IV Last administered on 12/17/18at 10:53; Start 12/14/18 at 19:00 Dextrose (Dextrose 50%) 25 ml ASDIRECTED PRN IV SEE LABEL COMMENTS; Start 12/14/18 at 13:15 Enoxaparin Sodium (Lovenox) 40 mg DAILY SC Last administered on 12/17/18at 09:54; Start 12/14/18 at 09:00 Fentanyl Citrate (Sublimaze) 25 mcg Q5MP PRN IV MODERATE PAIN (PS 4-7); Start 12/14/18 at 13:45; Stop 12/14/18 at 14:45; Status DC Finasteride (Proscar) 5 mg DAILY PO Last administered on 12/17/18at 09:55; Start 12/14/18 at 09:00 Furosemide (Lasix) 40 mg BID@0900,1700 PO Last administered on 12/17/18at 09:55; Start 12/14/18 at 17:00 Gabapentin (Neurontin) 400 mg QHS PO Last administered on 12/16/18at 21:49; Start 12/14/18 at 21:00 Glucagon (Glucagon) 1 mg ASDIRECTED PRN SC SEE LABEL COMMENTS; Start 12/14/18 at 13:15 Glucose (Glucose) 16 GM ASDIRECTED PRN PO SEE LABEL COMMENTS; Start 12/14/18 at 13:15 Insulin Detemir (Levemir Insulin) 76 units BID SC Last administered on 12/17/18at 09:54; Start 12/14/18 at 21:00 Lactated Ringer's 1,000 ml @ 50 mls/hr Q20H IV Last administered on 12/14/18at 10:40; Start 12/14/18 at 07:00; Stop 12/14/18 at 13:26; Status DC Lactated Ringer's 1,000 ml @ 100 mls/hr Q10H IV ; Start 12/14/18 at 13:45; Stop 12/14/18 at 14:45; Status DC Levothyroxine Sodium (Synthroid) 100 mcg DAILY@0600 PO Last administered on 12/17/18at 06:08; Start 12/14/18 at 06:00 Metoclopramide HCl (REGLAN INJection) 10 mg Q6HP PRN IV NAUSEA OR VOMITING; Start 12/14/18 at 13:45; Stop 12/14/18 at 14:45; Status DC Metoprolol Tartrate (Lopressor) 50 mg BID PO Last administered on 12/17/18at 09:55; Start 12/14/18 at 21:00 Morphine Sulfate (Morphine Sulfate Inj) 4 mg Q2HP PRN IV SEVERE PAIN (PS 8-10); Start 12/14/18 at 13:15 Ondansetron HCl (ZOFRAN INJection) 4 mg Q4HP PRN IV NAUSEA OR VOMITING; Start 12/14/18 at 13:45; Stop 12/14/18 at 14:45; Status DC Ondansetron HCl (ZOFRAN INJection) 4 mg Q6HP PRN IV NAUSEA OR VOMITING; Start 12/14/18 at 13:15 Oxycodone/ Acetaminophen (Percocet 5mg/ 325mg Tablet) 1 tab ASDIRECTED PRN PO MILD/MODERATE PAIN (PS 1-7); Start 12/14/18 at 13:45; Stop 12/14/18 at 14:45; Status DC Oxycodone/ Acetaminophen (Percocet 5mg/ 325mg Tablet) 1 tab Q4HP PRN PO MODERATE PAIN (PS 5-7); Start 12/14/18 at 13:15 Oxycodone/ Acetaminophen (Percocet 5mg/ 325mg Tablet) 2 tab Q6HP PRN PO SEVERE PAIN (PS 8-10); Start 12/14/18 at 13:15 Rosuvastatin Calcium (Crestor) 10 mg DAILY PO Last administered on 12/17/18at 09:56; Start 12/14/18 at 09:00 Senna/Docusate Sodium (Senokot S) 1 tab BID PO Last administered on 12/17/18at 09:55; Start 12/14/18 at 21:00 Spironolactone (Aldactone) 25 mg DAILY PO Last administered on 12/17/18at 09:55; Start 12/14/18 at 09:00 Tamsulosin HCl (Flomax) 0.4 mg QHS PO Last administered on 12/16/18 21:49; Start 12/14/18 at 21:00 Allergies Coded Allergies: No Known Allergies (Unverified , 12/26/17) Objective Physical Examination Examination GENERAL APPEARANCE: Patient seen sitting up on the bed, looks comfortable. SKIN: Warm and moist. Wound located on the upper back area slightly to the right of the midline. Wound measures 6 cm x 6 cm x 3 cm. There is some slight oozing at the wound skin edges but otherwise looks clean. There is beginning granulation tissue. There is no skin undermining. Surrounding skin without any erythema. HEENT: Normocephalic, atraumatic. [place] palpebral conjunctiva, anicteric sclerae. Lips and mucosa appear moist. LUNGS: Clear to auscultation bilaterally. No wheezing appreciated. HEART: Regular rate and rhythm with no murmurs appreciated EXTREMITIES: Extremities have no deformities. No edema identified. Vital Signs Vital Signs Date Time Temp Pulse Resp B/P (MAP) Pulse Ox O2 Delivery O2 Flow Rate FiO2 12/17/18 09:55 65 115/60 12/17/18 06:00 97.7 19 93 Room Air I&Os I&O- Last 24 Hours up to 6 AM 12/17/18 06:00 Intake Total 2520 ml Output Total 2250 ml Balance 270 ml Laboratory Data Labs 24H Laboratory Tests 2 12/16/18 21:18: Bedside Glucose (Misc Panel) 198H 12/17/18 09:10: Bedside Glucose (Misc Panel) 237H Microbiology Microbiology 12/14/18 Gram Stain - Final, Complete 12/14/18 Wound Culture - Final, Complete Staphylococcus Sp Coag Neg 12/14/18 Anaerobic Culture - Final, Complete Impression Infected sebaceous cyst status post attempt at excision, debridement, placement of wound VAC We will await approval of his insurance for home wound VAC and most likely send him home on that. I'll switch the Ancef to Keflex. His culture shows only growth of coag-negative Staphylococcus that is methicillin sensitive. His wound otherwise looks clean. I don't think we need to bring him back to the OR for debridement. Plan / VTE VTE Prophylaxis Ordered?: Yes CLARISA PACE MD Dec 17, 2018 11:46
--- NOTE | 2018-12-17 11:57 | ROOPDOC ---
[facility] Report Of Operation Report of Operation DATE OF PROCEDURE: 12/14/18 PREPROCEDURE DIAGNOSES: Recurrent, large sebaceous cyst. 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 PROCEDURE: Excision of sebaceous cyst, debridement of necrotic tissues, placement of wound VAC (initial) SURGEON: Sukhdeep Diaz MD ANESTHESIA: Local anesthesia using 1% lidocaine mixed with Marcaine and at the end of the procedure exparel with 1/4% marcaine, with monitored anesthesia care. ESTIMATED BLOOD LOSS: Approximately 300 mL. COMPLICATIONS: None. REMARKS: Large area of necrotic tissue with a thick rind as a capsule for a chronically, recurrent inflamed sebaceous cyst with thick milky purulent fluid drained out. The wall is about 2 cm thick with mushy, spongy tissues within it and chronic scaring and necrosis of surrounding fat tissue on a morbidly obese, diabetic patient.. DESCRIPTION OF PROCEDURE: Patient was brought to the operating room for recurrent sebaceous cyst previously got infected and I incised and drained in the office last year. The areas over the patient's upper back area slightly to the right. There is a large area roughly about 8 cm transversely that is fluctuant but not too well defined. The skin is mildly thickened with nonindurated. There is no skin erythema to suggest cellulitis. He was brought in for attempt at excision of the whole cyst. He received 2 g of Ancef preoperatively for wound prophylaxis. He was brought to the OR placed on the left lateral decubitus position with a beanbag to support him. His pressure points were padded oxygen and IV sedation as well as monitoring provided by anesthesia. SCD boots were placed in both lower extremities for DVT prophylaxis. The area on his upper back area was prepped and draped in usual sterile fashion.We paused for a surgical timeout using both pre- incision safety checklist to verify correct patient, procedure site and additional clinical information prior to beginning the procedure. The area on his upper back area was widely infiltrated both subcutaneously and intradermally with a mixture of 1% lidocaine and 1/4% Marcaine. I made a vertical incision at the center of the fluctuant area extended to about initially about 4 cm. Skin around the area was thick and it came through scarred in, hardened subcutaneous tissue. Try to develop a circumferential plane to get around the capsule. As the area is chronically inflamed there was a lot of oozing created with the raw surface. I was not able to get around due to the hardening of the subcutaneous adipose tissue. I then converted to a cruciate incision to get part of the skin but there was still having difficulty time getting into plane away from the hardened tissue without devascularizing the overlying skin. I deepened the incision and likewise enlarge the vertical incision both superiorly and inferiorly. I got into the cavity of the cyst with drainage of whitish mixed flecks of solid and liquid purulent appearing [id number] material. There was some bleeding at the edges of the incision as well as within the subcutaneous tissue that needed to be controlled. The cavity was temporarily packed with lap pads. I examined the wall of the capsule. There was thickened and hardened scar and adipose tissue and sloping the cyst. The inner wall of the cyst consist of spongy material. I then took the skin and the visible portions of the capsule piecemeal. I continued enlarging the skin and subcutaneous tissue incision taking part of the wall with it. Due to the enlargement of the incision patient was having difficult time with controlling the pain. He was given ketamine by the anesthesia. I tried debulking and debriding the posterior wall that was left over. I used the scratchpad to roughen up and debrided the loose spongy tissue at the posterior wall. I tried to get around the posterior wall but this seems to be well attached posteriorly to the rest of the subcutaneous tissue and probably the dorsal fascia. I stopped at this point to control multiple bleeding portions OF it where pulsatile bleeding. After adequate control this was temporarily packed. After removing the packing this was irrigated and then checked for hemostasis. Leftover accessible portions of the posterior wall was further debrided both the Bovie cautery and with the scratchpad. At the end of the procedures wide area about 8 x 8 cm about 3 cm the. There is still some left over hardened tissue at the posterior wall. As the patient was uncomfortable again I decided to stop this portion. I then placed a wound VAC foam it attaches to wound VAC device and the constant suction about 1 20 mmHg pressure. This is an adequate seal. Patient was then awakened and brought to recovery room stable. SUKHDEEP DIAZ MD Dec 17, 2018 11:57
[2018-12-17 14:00] VITALS: BP 136/64
[2018-12-17] MEDS: CEPHALEXIN 500 MG CAP PO SCH ×2 (17:40→21:50)
[2018-12-17] MEDS: TAMSULOSIN 0.4 MG CAP PO SCH (21:49)
[2018-12-17] MEDS: GABAPENTIN 400 MG CAP PO SCH (21:50)
[2018-12-17 22:00] VITALS: BP 132/63
[2018-12-18] MEDS: LEVOTHYROXINE 100MCG TABLET (0.1MG) PO SCH (05:28)
[2018-12-18 06:00] VITALS: BP 122/71
[2018-12-18] MEDS ORDERED: MOM 30ML SUSPENSION UDC PO ONE (08:30)
[2018-12-18] MEDS: CEPHALEXIN 500 MG CAP PO SCH ×4 (09:26→21:44)
[2018-12-18] MEDS: ALLOPURINOL 300 MG TAB PO SCH (09:27)
[2018-12-18] MEDS: SPIRONOLACTONE 25 MG TAB PO SCH (09:27)
[2018-12-18] MEDS: FUROSEMIDE 40 MG TAB PO SCH ×2 (09:27→17:16)
[2018-12-18] MEDS: METOPROLOL TART 50 MG TAB PO SCH ×2 (09:27→21:45)
[2018-12-18] MEDS: ASPIRIN 81 MG ENTERIC TAB PO SCH (09:28)
[2018-12-18] MEDS: SENOKOT S TAB PO SCH ×2 (09:28→21:44)
[2018-12-18] MEDS: FINASTERIDE 5 MG TAB PO SCH (09:28)
[2018-12-18] MEDS: ROSUVASTATIN 10 MG TAB (CRESTOR) PO SCH (09:28)
[2018-12-18] MEDS: ENOXAPARIN 40 MG/0.4 ML SYRINGE (J1650) SC SCH (09:30)
[2018-12-18] MEDS: LEVEMIR (INSULIN DETEMIR) 1 UNITS/0.01ML SC SCH ×2 (09:30→21:44)
--- NOTE | 2018-12-18 13:04 | IPNPDOC ---
Subjective General Date/Time Seen The patient was seen on 12/18/18 at 13:02. Subject Chief Complaint/History Patient is doing well. Reports minimal discomfort from the wound VAC and his wound on his upper back area. His wound VAC supplies arrived today. No complaints reported both by patient and nursing. Current Medications Current Medications Current Medications Acetaminophen (Tylenol Tab) 650 mg Q4HP PRN PO MILD PAIN or TEMP > 101; Start 12/14/18 at 13:15 Allopurinol (Zyloprim) 300 mg DAILY PO Last administered on 12/18/18at 09:27; Start 12/14/18 at 09:00 Aspirin (Ecotrin) 81 mg DAILY PO Last administered on 12/18/18 09:28; Start 12/14/18 at 09:00 Cefazolin Sodium/ Dextrose 2 gm/IV Miscellaneous Supplies 50 ml @ 75 mls/hr Q8H IV Last administered on 12/17/18at 10:53; Start 12/14/18 at 19:00; Stop 12/17/18 at 11:58; Status DC Cephalexin Monohydrate (Keflex) 500 mg QID PO Last administered on 12/18/18at 09:26; Start 12/17/18 at 17:00 Dextrose (Dextrose 50%) 25 ml ASDIRECTED PRN IV SEE LABEL COMMENTS; Start 12/14/18 at 13:15 Enoxaparin Sodium (Lovenox) 40 mg DAILY SC Last administered on 12/18/18at 09:30; Start 12/14/18 at 09:00 Fentanyl Citrate (Sublimaze) 25 mcg Q5MP PRN IV MODERATE PAIN (PS 4-7); Start 12/14/18 at 13:45; Stop 12/14/18 at 14:45; Status DC Finasteride (Proscar) 5 mg DAILY PO Last administered on 12/18/18 09:28; Start 12/14/18 at 09:00 Furosemide (Lasix) 40 mg BID@0900,1700 PO Last administered on 12/18/18at 09:27; Start 12/14/18 at 17:00 Gabapentin (Neurontin) 400 mg QHS PO Last administered on 12/17/18at 21:50; Start 12/14/18 at 21:00 Glucagon (Glucagon) 1 mg ASDIRECTED PRN SC SEE LABEL COMMENTS; Start 12/14/18 at 13:15 Glucose (Glucose) 16 GM ASDIRECTED PRN PO SEE LABEL COMMENTS; Start 12/14/18 at 13:15 Insulin Detemir (Levemir Insulin) 76 units BID SC Last administered on 12/18/18at 09:30; Start 12/14/18 at 21:00 Lactated Ringer's 1,000 ml @ 50 mls/hr Q20H IV Last administered on 12/14/18at 10:40; Start 12/14/18 at 07:00; Stop 12/14/18 at 13:26; Status DC Lactated Ringer's 1,000 ml @ 100 mls/hr Q10H IV ; Start 12/14/18 at 13:45; Stop 12/14/18 at 14:45; Status DC Levothyroxine Sodium (Synthroid) 100 mcg DAILY@0600 PO Last administered on 12/18/18at 05:28; Start 12/14/18 at 06:00 Metoclopramide HCl (REGLAN INJection) 10 mg Q6HP PRN IV NAUSEA OR VOMITING; Start 12/14/18 at 13:45; Stop 12/14/18 at 14:45; Status DC Metoprolol Tartrate (Lopressor) 50 mg BID PO Last administered on 12/18/18at 09:27; Start 12/14/18 at 21:00 Morphine Sulfate (Morphine Sulfate Inj) 4 mg Q2HP PRN IV SEVERE PAIN (PS 8-10); Start 12/14/18 at 13:15 Ondansetron HCl (ZOFRAN INJection) 4 mg Q4HP PRN IV NAUSEA OR VOMITING; Start 12/14/18 at 13:45; Stop 12/14/18 at 14:45; Status DC Ondansetron HCl (ZOFRAN INJection) 4 mg Q6HP PRN IV NAUSEA OR VOMITING; Start 12/14/18 at 13:15 Oxycodone/ Acetaminophen (Percocet 5mg/ 325mg Tablet) 1 tab ASDIRECTED PRN PO MILD/MODERATE PAIN (PS 1-7); Start 12/14/18 at 13:45; Stop 12/14/18 at 14:45; Status DC Oxycodone/ Acetaminophen (Percocet 5mg/ 325mg Tablet) 1 tab Q4HP PRN PO MODERATE PAIN (PS 5-7); Start 12/14/18 at 13:15 Oxycodone/ Acetaminophen (Percocet 5mg/ 325mg Tablet) 2 tab Q6HP PRN PO SEVERE PAIN (PS 8-10); Start 12/14/18 at 13:15 Rosuvastatin Calcium (Crestor) 10 mg DAILY PO Last administered on 12/18/18at 09 :28; Start 12/14/18 at 09:00 Senna/Docusate Sodium (Senokot S) 1 tab BID PO Last administered on 12/18/18at 09:28; Start 12/14/18 at 21:00 Spironolactone (Aldactone) 25 mg DAILY PO Last administered on 12/18/18 09:27; Start 12/14/18 at 09:00 Tamsulosin HCl (Flomax) 0.4 mg QHS PO Last administered on 12/17/18at 21:49; Start 12/14/18 at 21:00 Allergies Coded Allergies: Sulfamethoxazole w/Trimethoprim (Verified Allergy, Unknown, 12/18/18) pt states he went into renal failure when on bactirm Objective Physical Examination Examination GENERAL APPEARANCE: Comfortable. SKIN: Warm and moist. Wound VAC in the upper back area in place working accordingly. Slight serosanguineous drainage in the canister HEENT: Normocephalic, atraumatic. [place]asy palpebral conjunctiva, anicteric sclerae. Lips and mucosa appear moist. NECK: Supple, no thyromegaly. No obvious jugular venous distention. LUNGS: Clear to auscultation bilaterally. No wheezing appreciated. HEART: No chest wall abnormalities. Regular rate and rhythm with no murmurs appreciated. EXTREMITIES: Extremities have no deformities. No edema identified. Vital Signs Vital Signs Date Time Temp Pulse Resp B/P (MAP) Pulse Ox O2 Delivery O2 Flow Rate FiO2 12/18/18 09:27 71 122/71 12/18/18 06:00 97.5 20 96 Room Air I&Os I&O- Last 24 Hours up to 6 AM 12/18/18 05:59 Intake Total 3240 ml Output Total 775 ml Balance 2465 ml Laboratory Data Microbiology Microbiology 12/14/18 Gram Stain - Final, Complete 12/14/18 Wound Culture - Final, Complete Staphylococcus Sp Coag Neg 12/14/18 Anaerobic Culture - Final, Complete Impression Open wound following excision and debridement of infected sebaceous cyst in the upper back area 6 x 6 x 3 cm Wound VAC supplies arrived today. The visiting nurses will be available to see him starting Monday. We will send him home tomorrow after change of a wound VAC. Continue with oral antibiotics for 10 days. Plan / VTE VTE Prophylaxis Ordered?: Yes CLARISA PACE MD Dec 18, 2018 13:04
[2018-12-18 14:00] VITALS: BP 116/87
[2018-12-18] MEDS: TAMSULOSIN 0.4 MG CAP PO SCH (21:44)
[2018-12-18] MEDS: GABAPENTIN 400 MG CAP PO SCH (21:44)
[2018-12-18 21:45] VITALS: BP 121/79
[2018-12-18 22:00] VITALS: BP 121/79
[2018-12-19 06:00] VITALS: BP 120/81
[2018-12-19] MEDS: LEVOTHYROXINE 100MCG TABLET (0.1MG) PO SCH (06:26)
[2018-12-19] MEDS: ROSUVASTATIN 10 MG TAB (CRESTOR) PO SCH (08:05)
[2018-12-19] MEDS: FINASTERIDE 5 MG TAB PO SCH (08:06)
[2018-12-19] MEDS: ALLOPURINOL 300 MG TAB PO SCH (08:06)
[2018-12-19] MEDS: CEPHALEXIN 500 MG CAP PO SCH ×2 (08:06→13:47)
[2018-12-19] MEDS: METOPROLOL TART 50 MG TAB PO SCH (08:06)
[2018-12-19] MEDS: FUROSEMIDE 40 MG TAB PO SCH (08:06)
[2018-12-19] MEDS: ASPIRIN 81 MG ENTERIC TAB PO SCH (08:06)
[2018-12-19] MEDS: SENOKOT S TAB PO SCH (08:07)
[2018-12-19] MEDS: LEVEMIR (INSULIN DETEMIR) 1 UNITS/0.01ML SC SCH (08:07)
[2018-12-19] MEDS: ENOXAPARIN 40 MG/0.4 ML SYRINGE (J1650) SC SCH (08:07)
[2018-12-19] MEDS: SPIRONOLACTONE 25 MG TAB PO SCH (08:07)
[2018-12-19] MEDS ORDERED: CEPH500C PO (09:26)
--- NOTE | 2018-12-25 19:58 | DS.PDOC ---
Discharge Summary General Date of Admission Dec 14, 2018 at 13:14 Date of Discharge Zofia 2018 Attending Physician: CLARISA PACE MD Discharge Summary PROCEDURES PERFORMED DURING STAY: Excision and debridement infected sebaceous cyst upper back area. ADMITTING DIAGNOSES: 1. Infected sebaceous cyst with abscess upper back 2. Morbid obesity 3. Diabetes 4. Coronary artery disease. DISCHARGE DIAGNOSES: 1. Infected sebaceous cyst with abscess upper back status post debridement, placement of wound VAC. 2. Morbid obesity 3. Diabetes 4. Coronary artery disease. COMPLICATIONS/CHIEF COMPLAINT: Large Sebaceous Cyst. HISTORY OF PRESENT ILLNESS: Patient underwent elective procedure for excision of large sebaceous cyst ON upper back area roughly measuring about 6 x 6 cm externally. Intraoperatively he was found to have chronic inflammation likewise abscess and doesn't large wound was left in place after excision of an debridement of the inflamed area containing the sebaceous cyst. A wound VAC was placed intraoperatively and was subsequently admitted. HOSPITAL COURSE: Following his surgery was admitted to the hospital. He was kept on Ancef 2 g IV every 8 hours while awaiting microbiology results. Later results shows growth of coagulase negative Staphylococcus aureus which is methicillin sensitive. He was subsequently changed to Keflex orally. His wound VAC is being changed twice during his admission showing a clean wound cavity gets down to the deep subcutaneous tissue but not the muscles. Measurement of the wound cavity shows 6 x 6 x 3 cm. A referral was sent to his insurance for home wound VAC therapy which was subsequently approved. Once the home wound VAC supplies a ride home and arrangements made for visiting nurses to change his dressings he was subsequently discharged home. DISCHARGE MEDICATIONS: Please see below. ALLERGIES: Please see below. PHYSICAL EXAMINATION ON DISCHARGE: VITAL SIGNS: Please see below. GENERAL: Comfortable HEENT: [place] palpebral conjunctiva, anicteric sclerae NECK: Short supple neck CARDIOVASCULAR EXAMINATION: Regular heart rate and rhythm RESPIRATORY EXAMINATION: Clear breath sounds auscultation bilaterally ABDOMINAL EXAMINATION: Soft, nondistended nontender EXTREMITIES: No deformities SKIN: Large clean wound with beginning epithelialization measuring 6 x 6 x 3 cm on the upper back area NEUROLOGICAL EXAMINATION: Awake, alert oriented LABORATORY DATA: Please see below. IMAGING: None PROGNOSIS: Good ACTIVITY: As tolerated. DIET: Consistent carbohydrate diet DISCHARGE PLAN: Patient discharged home on a seven-day course of Keflex 500 mg by mouth 4 times a day. DISPOSITION: Home Health Service. DISCHARGE INSTRUCTIONS: 1. As above 2. Public health nursing to change wound VAC Monday 3. Follow-up with me in 2 weeks. ITEMS TO FOLLOWUP ON ON OUTPATIENT: 1. Wound care. DISCHARGE CONDITION: Stable. TIME SPENT ON DISCHARGE: Greater than 30 minutes. Vital Signs/I&Os Vital Signs Date Time Temp Pulse Resp B/P (MAP) Pulse Ox O2 Delivery O2 Flow Rate FiO2 12/19/18 06:00 98.0 81 18 120/81 (94) 94 Room Air Discharge Medications Scheduled Allopurinol (Zyloprim) 300 Mg Tab, 300 MG PO DAILY, (Reported) Aspirin (Aspirin 81) 81 Mg Tab, 81 MG PO DAILY, (Reported) Bimatoprost (Lumigan) 50 Drop/2.5 Ml [place], 1 DROP OU QHS, (Reported) Cephalexin Monohydrate (Cephalexin) 500 Mg Cap, 500 MG PO QID Fenofibrate (Fenofibrate) 54 Mg Tab, 54 MG PO DAILY, (Reported) TAKES AT NOON Finasteride (Finasteride) 5 Mg Tab, 5 MG PO DAILY, (Reported) TAKES AT NOON Furosemide (Furosemide) 40 Mg Tab, 40 MG PO BID, (Reported) Gabapentin (Gabapentin) 400 Mg Cap, 400 MG PO QHS, (Reported) Glipizide (Glipizide) 10 Mg Tab, 10 MG PO BID, (Reported) Insulin Glargine (Lantus) 1 Units/0.01 Ml Susp, 76 UNITS SC BID, (Reported) Insulin Human Regular (Humulin R U-500 Kwikpen) 500 Unit/Ml Inj, 1 DOSE SC ACS, (Reported) PER SLIDING SCALE MDD=20 UNITS Levothyroxine Sodium (Synthroid) 100 Mcg Tab, 100 MCG PO DAILY, (Reported) Metoprolol Tartrate (Metoprolol Tartrate) 50 Mg Tab, 50 MG PO BID, (Reported) Rosuvastatin Calcium (Rosuvastatin Calcium) 10 Mg Tab, 10 MG PO DAILY, (Reported) Spironolactone (Spironolactone) 25 Mg Tab, 25 MG PO DAILY, (Reported) Tamsulosin Hydrochloride (Flomax) 0.4 Mg Cap, 0.4 MG PO QHS, (Reported) Allergies Coded Allergies: Sulfamethoxazole w/Trimethoprim (Verified Allergy, Unknown, 12/18/18) pt states he went into renal failure when on bactirm [facility] MD Dec 25, 2018 19:58
== END 2018-12-19 16:00 | disposition home health service (06) | DRG 571 ==
LOC: M SDC 09:11 → M OR 13:14 → M MSPAV 14:56
PROVIDERS: ADMIT Surgery; ATTEND Surgery
PROC: 0JB70ZZ Excision of Back Subcutaneous Tissue and Fascia, Open Approach (ICD-10-PCS; principal; 2018-12-14 11:45)
DX: L02.212 Cutaneous abscess of back [any part, except buttock and flank] (principal); Z68.41 Body mass index [BMI] 40.0-44.9, adult; L72.3 Sebaceous cyst; E66.01 Morbid (severe) obesity due to excess calories; E11.9 Type 2 diabetes mellitus without complications; G47.33 Obstructive sleep apnea (adult) (pediatric); I50.9 Heart failure, unspecified; I25.10 Atherosclerotic heart disease of native coronary artery without angina pectoris; I11.0 Hypertensive heart disease with heart failure; M10.9 Gout, unspecified; E03.9 Hypothyroidism, unspecified; Z87.891 Personal history of nicotine dependence; Z79.4 Long term (current) use of insulin; Z79.82 Long term (current) use of aspirin; Z88.2 Allergy status to sulfonamides

== ENCOUNTER → 2019-02-06 | Outpatient (REF) | payer MEDICARE, MEDICAID ==
[~2019-02-06] MED LIST changes: +CEPH500C PO; -LR 1,000 ML IV SCH
[2019-02-06 11:42] LABS: BLOOD UREA NITROGEN 30 MG/DL (7-18); CALCIUM LEVEL 9.3 MG/DL (8.8-10.2); CARBON DIOXIDE LEVEL 31 MEQ/L (21-32); CHLORIDE LEVEL 103 MEQ/L (98-107); CREATININE FOR GFR 1.24 MG/DL (0.70-1.30); GLOMERULAR FILTRATION RATE > 60.0 (>49); GLUCOSE, FASTING 144 MG/DL (70-100); POTASSIUM SERUM 4.5 MEQ/L (3.5-5.1); SODIUM LEVEL 141 MEQ/L (136-145)
[2019-02-06 14:45] LABS: HEMOGLOBIN A1c 7.8 %
== END ==
LOC: M SFHCLERA 09:22
PROVIDERS: ATTEND Family Medicine
DX: E11.22 Type 2 diabetes mellitus with diabetic chronic kidney disease (principal)
CPT/HCPCS: 80048; 83036; G0463

== ENCOUNTER → 2019-09-12 | Outpatient (REF) | payer MEDICARE, MEDICAID ==
[~2019-09-12] MED LIST changes: -ASPI1TAB PO; +ASPI81TA26 PO; -ROSU10TA5 PO; +ROSU10TA6 PO
[2019-09-12 16:45] LABS: ALBUMIN 3.9 GM/DL (3.2-5.2); ALT/SGPT 31 U/L (12-78); BILIRUBIN,TOTAL 0.5 MG/DL (0.2-1.0); BLOOD UREA NITROGEN 31 MG/DL (7-18); CALCIUM LEVEL 9.8 MG/DL (8.8-10.2); CARBON DIOXIDE LEVEL 30 MEQ/L (21-32); CHLORIDE LEVEL 105 MEQ/L (98-107); CHOLESTEROL LEVEL 191 MG/DL (<200); CHOLESTEROL RISK RATIO 4.775 (<5); CREATININE FOR GFR 1.23 MG/DL (0.70-1.30); GLOMERULAR FILTRATION RATE > 60.0 (>49); GLUCOSE, FASTING 96 MG/DL (70-100); HDL CHOLESTEROL 40 MG/DL (>40); LDL CHOLESTEROL 97 MG/DL (<100); NON-HDL-C 151 MG/DL; POTASSIUM SERUM 4.5 MEQ/L (3.5-5.1); SODIUM LEVEL 141 MEQ/L (136-145); TOTAL PROTEIN 7.9 GM/DL (6.4-8.2); TRIGLYCERIDES LEVEL 268 MG/DL (<150)
[2019-09-12 16:58] LABS: HEMOGLOBIN A1c 8.2 %
== END ==
LOC: M SFHCLERA 12:33
PROVIDERS: ATTEND Family Medicine
DX: E11.22 Type 2 diabetes mellitus with diabetic chronic kidney disease (principal)
CPT/HCPCS: 80053; 80061; 82043; 83036; 84443; 90682; G0008; G0463

== ENCOUNTER → 2020-08-24 | Outpatient (CLI) | payer MEDICARE, OTHER ==
[2020-08-24 13:17] LABS: BASO % 0.3 % (0.0-1.0); EOS # 0.1 10^3/uL (0.0-0.5); HEMATOCRIT 45.9 % (42.0-52.0); HEMOGLOBIN 15.2 g/dl (13.5-17.5); LYMPH # 2.9 10^3/uL (1.5-5.0); LYMPH % 40.6 % (24.0-44.0); MEAN CORPUSCULAR HGB CONC 33.1 g/dl (32.0-36.5); MEAN CORPUSCULAR VOLUME 87.6 fl (80.0-96.0); MONO # 0.6 10^3/uL (0.0-0.8); MONO % 7.9 % (0.0-5.0); NEUTROPHILS # 3.5 10^3/uL (1.5-8.5); NEUTROPHILS % 48.8 % (36.0-66.0); PLATELET COUNT, AUTOMATED 191 10^3/uL (150-450); RED BLOOD COUNT 5.24 10^6/uL (4.30-6.10); WHITE BLOOD COUNT 7.2 10^3/uL (4.0-10.0)
[2020-08-24 13:35] LABS: BLOOD UREA NITROGEN 31 MG/DL (7-18); CALCIUM LEVEL 9.7 MG/DL (8.8-10.2); CARBON DIOXIDE LEVEL 29 MEQ/L (21-32); CHLORIDE LEVEL 104 MEQ/L (98-107); CHOLESTEROL LEVEL 157 MG/DL (<200); CHOLESTEROL RISK RATIO 4.025 (<5); GLOMERULAR FILTRATION RATE > 60.0 (>49); GLUCOSE, FASTING 85 MG/DL (70-100); HDL CHOLESTEROL 39 MG/DL (>40); HEMOGLOBIN A1c 8.8 %; LDL CHOLESTEROL 66 MG/DL (<100); NON-HDL-C 118 MG/DL; POTASSIUM SERUM 3.7 MEQ/L (3.5-5.1); SODIUM LEVEL 140 MEQ/L (136-145); TRIGLYCERIDES LEVEL 262 MG/DL (<150)
[2020-08-24 14:09] LABS: MAU/CREAT RATIO 769.4 MCG/MG (0.0-30.0)
== END ==
LOC: M LAB 11:39
PROVIDERS: ATTEND Family Medicine
DX: E11.9 Type 2 diabetes mellitus without complications (principal)

== ENCOUNTER → 2020-12-11 | Outpatient (CLI) | payer MEDICARE, MEDICAID ==
[2020-12-11 11:39] LABS: CHOLESTEROL RISK RATIO 3.875 (<5)
== END ==
LOC: M LAB 09:43
PROVIDERS: ATTEND Physician Assistant
DX: I63.50 Cerebral infarction due to unspecified occlusion or stenosis of unspecified cerebral artery (principal)

== ENCOUNTER → 2020-12-11 | Outpatient (CLI) | payer MEDICARE, MEDICAID ==
[2020-12-11 11:31] LABS: HEMOGLOBIN A1c 7.5 %
[2020-12-11 11:35] LABS: CALCIUM LEVEL 9.1 MG/DL (8.8-10.2); CREATININE FOR GFR 1.31 MG/DL (0.70-1.30); GLOMERULAR FILTRATION RATE 58.8 (>49); POTASSIUM SERUM 4.1 MEQ/L (3.5-5.1)
[2020-12-11 11:51] LABS: CREATININE, URINE 58.8 MG/DL; MAU/CREAT RATIO 323.1 MCG/MG (0.0-30.0)
== END ==
LOC: M LAB 09:38
PROVIDERS: ATTEND Family Medicine
DX: E11.22 Type 2 diabetes mellitus with diabetic chronic kidney disease (principal); I63.50 Cerebral infarction due to unspecified occlusion or stenosis of unspecified cerebral artery

== ENCOUNTER → 2021-03-16 | Outpatient (CLI) | payer MEDICARE, MEDICAID ==
[2021-03-16 10:49] LABS: HEMOGLOBIN A1c 7.5 %
[2021-03-16 11:03] LABS: BLOOD UREA NITROGEN 27 MG/DL (7-18); CALCIUM LEVEL 9.8 MG/DL (8.8-10.2); CARBON DIOXIDE LEVEL 29 MEQ/L (21-32); CHLORIDE LEVEL 103 MEQ/L (98-107); CREATININE FOR GFR 1.17 MG/DL (0.70-1.30); GLOMERULAR FILTRATION RATE > 60.0 (>49); GLUCOSE, FASTING 139 MG/DL (70-100); SODIUM LEVEL 139 MEQ/L (136-145)
== END ==
LOC: M LAB 08:42
PROVIDERS: ATTEND Nurse Practitioner Family
DX: E11.22 Type 2 diabetes mellitus with diabetic chronic kidney disease (principal); E03.9 Hypothyroidism, unspecified; N18.30 Chronic kidney disease, stage 3 unspecified

== ENCOUNTER → 2021-05-31 | Outpatient (CLI) | payer MEDICARE, MEDICAID ==
[~2021-05-31] MED LIST changes: +BYDU2INJ7 SC; +FARX1TAB3 PO; +GABA-283 PO; -GABA-845 PO; +INSUHUMDS SC; +LOSA25TA14 PO; +METF-838 PO; +NITR0.4S14 SL; +VENTAER INH
== END ==
LOC: M LABSMTC 10:29
PROVIDERS: ATTEND Anesthesiology
DX: Z01.812 Encounter for preprocedural laboratory examination (principal); Z20.822 Contact with and (suspected) exposure to COVID-19

== ENCOUNTER 2021-06-04 06:37 | Day surgery (SDC) | payer MEDICARE, MEDICAID ==
[~2021-06-04] VITALS: Ht 172.7 cm; Wt 138.3 kg
[~2021-06-04 06:37] MED LIST changes: +NS 1,000 ML IV ONE
[2021-06-04] MEDS ORDERED: LIDOCAINE 2% 100MG/5ML SDV (FOR ANES.) As Ordered ONE (07:47)
[2021-06-04] MEDS ORDERED: propofoL 200 MG/20 ML VIAL As Ordered ONE ×2 (07:47→07:59)
[2021-06-04] MEDS ORDERED: ePHEDrine SULFATE 25 MG/5 ML(5MG/ML) SYRINGE As Ordered ONE (08:19)
--- NOTE | 2021-06-04 08:19 | ROOR ---
Patient Name: Goran Anaya Procedure Date: 06/04/2021 7:55 AM Date of : 1955 Age: 66 Room: [facility] Gender: Male Note Status: Finalized Procedure: Colonoscopy Indications: Screening for colorectal malignant neoplasm Providers: Juma Ortega MD Referring MD: Wing Cortez DO Requestjosé antonio Provider: Medicines: Monitored Anesthesia Care Complications: No immediate complications. Procedure: Pre-Anesthesia Assessment: - The heart rate, respiratory rate, oxygen saturations, blood pressure, adequacy of pulmonary ventilation, and response to care were monitored throughout the procedure. The Colonoscope was introduced through the anus and advanced to the terminal ileum, with identification of the appendiceal orifice and IC valve. The colonoscopy was performed without difficulty. The patient tolerated the procedure well. The quality of the bowel preparation was adequate. Findings: The perianal and digital rectal examinations were normal. Two sessile polyps were found in the proximal ascending colon and cecum. The polyps were 4 to 6 mm in size. These polyps were removed with a cold snare. Resection and retrieval were complete. Two sessile polyps were found in the splenic flexure. The polyps were 3 to 4 mm in size. These polyps were removed with a cold snare. Resection and retrieval were complete. A 3 mm polyp was found in the sigmoid colon. The polyp was sessile. The polyp was removed with a cold snare. Resection and retrieval were complete. Internal hemorrhoids were found during retroflexion. The hemorrhoids were medium-sized. The exam was otherwise without abnormality on direct and retroflexion views. Impression: - Two 4 to 6 mm polyps in the proximal ascending colon and in the cecum, removed with a cold snare. Resected and retrieved. - Two 3 to 4 mm polyps at the splenic flexure, removed with a cold snare. Resected and retrieved. - One 3 mm polyp in the sigmoid colon, removed with a cold snare. Resected and retrieved. - Internal hemorrhoids. - The examination was otherwise normal on direct and retroflexion views. Recommendation: - Repeat colonoscopy in 3 years for surveillance. Procedure Code(s): --- Professional --- 41385, Colonoscopy, flexible; with removal of tumor(s), polyp(s), or other lesion(s) by snare technique Diagnosis Code(s): --- Professional --- K63.5, Polyp of colon Z12.11, Encounter for screening for malignant neoplasm of colon K64.8, Other hemorrhoids CPT copyright 2019 [employer]. All rights reserved. The codes documented in this report are preliminary and upon motorcoach driver review may be revised to meet current compliance requirements. Juma Ortega MD Juma Ortega MD 06/04/2021 8:19:31 AM Electronically signed by Juma Ortega MD Number of Addenda: 0 Note Initiated On: 06/04/2021 7:55 AM Estimated Blood Loss: Estimated blood loss: none.
[2021-06-04 08:37] VITALS: BP 160/85
== END 2021-06-04 08:48 | disposition home or self-care (01) ==
LOC: M OPP 06:37
PROVIDERS: ATTEND Internal Medicine Gastroenterology
DX: Z12.11 Encounter for screening for malignant neoplasm of colon (principal); K63.5 Polyp of colon; K64.8 Other hemorrhoids; I50.9 Heart failure, unspecified; E11.9 Type 2 diabetes mellitus without complications; Z79.4 Long term (current) use of insulin; Z79.82 Long term (current) use of aspirin; Z79.899 Other long term (current) drug therapy; Z88.2 Allergy status to sulfonamides; Z88.8 Allergy status to other drugs, medicaments and biological substances

== ENCOUNTER → 2021-08-16 | Outpatient (CLI) | payer MEDICARE, MEDICAID ==
[~2021-08-16] MED LIST changes: -NS 1,000 ML IV ONE
--- NOTE | 2021-08-16 11:44 | REP ---
INDICATION: LT SHOULDER IMPENGEMENT. COMPARISON: None. TECHNIQUE: Multiple views including scapular Y and axillary views FINDINGS: The glenohumeral and acromioclavicular relationships are within normal limits. There is no fracture, dislocation, or subluxation. IMPRESSION: No acute abnormality <Electronically signed by Sincere Bianchi > 08/16/21 [id number]
== END ==
LOC: M SOG 10:13
PROVIDERS: ATTEND Orthopaedic Surgery Sports Medicine
DX: M75.42 Impingement syndrome of left shoulder (principal)

== ENCOUNTER 2021-08-25 10:44 | Outpatient (RCR) | payer MEDICARE, MEDICAID | END 2021-08-26 | LOC: M PT 10:44 | PROVIDERS: ATTEND Orthopaedic Surgery Sports Medicine | DX: M75.42 Impingement syndrome of left shoulder (principal) ==

== ENCOUNTER → 2021-09-20 | Outpatient (CLI) | payer MEDICARE, MEDICAID ==
[2021-09-20 09:50] LABS: CALCIUM LEVEL 9.1 MG/DL (8.8-10.2); CHOLESTEROL RISK RATIO 4.23 (<5); CREATININE FOR GFR 1.29 MG/DL (0.70-1.30); GLOMERULAR FILTRATION RATE 59.7 (>49); POTASSIUM SERUM 4.1 MEQ/L (3.5-5.1)
[2021-09-20 10:21] LABS: HEMOGLOBIN A1c 9.2 %
== END ==
LOC: M LAB 08:25
PROVIDERS: ATTEND Family Medicine
DX: E11.22 Type 2 diabetes mellitus with diabetic chronic kidney disease (principal); E78.2 Mixed hyperlipidemia; N18.30 Chronic kidney disease, stage 3 unspecified

== ENCOUNTER → 2021-10-14 | Outpatient (CLI) | payer MEDICARE, MEDICAID ==
[~2021-10-14] MED LIST changes: +PROHANCE 279.3MG/ML 15ML VIAL As Ordered ONE
--- NOTE | 2021-10-14 23:03 | REPVR ---
PROCEDURE INFORMATION: Exam: MR Head Without Contrast; Internal Auditory Canals Exam date and time: 10/14/2021 11:33 AM Age: 66 years old Clinical indication: Other: Hearing loss; Additional info: Hearing loss bilateral TECHNIQUE: Imaging protocol: MR of the head without contrast. Exam focused on the internal auditory canals. COMPARISON: No relevant prior studies available. FINDINGS: Limitations: Examination is limited by motion artifact. Brain: Mild scattered nonspecific T2/FLAIR hyperintensities of the periventricular and deep subcortical white matter, most likely secondary to chronic small vessel ischemic change. No intracranial hemorrhage or extra-axial fluid collection. No evidence of mass effect or midline shift. No restricted diffusion to suggest acute infarct. Normal appearance of cranial nerves on thin T2 sequences. Cerebellopontine angle cisterns are clear. Meckel's caves are clear. Internal auditory canals are clear. Ventricles: No ventriculomegaly. Mastoid air cells: Unremarkable. No effusions. Bones/joints: Unremarkable. IMPRESSION: 1. No acute intracranial findings. Examination limited by motion artifact 2. Chronic findings, as above. Electronically signed by: Ted Cardenas On 10/14/2021 23:03:29 PM
== END ==
LOC: M RAD 09:57
PROVIDERS: ATTEND Otolaryngology
DX: H90.3 Sensorineural hearing loss, bilateral (principal); I67.82 Cerebral ischemia
CPT/HCPCS: 70553; A9576

== ENCOUNTER → 2022-01-15 | Outpatient (CLI) | payer MEDICARE, MEDICAID ==
[~2022-01-15] MED LIST changes: +ALLO300T2 PO; +B-CO1TAB12 PO; +FARX1TAB5 PO; +LOSA25TA13 PO; -LOSA25TA14 PO; +LOSA50TA28 PO; -LOSA50TA88 PO; -PROHANCE 279.3MG/ML 15ML VIAL As Ordered ONE; +VASC1CAP2 PO
== END ==
LOC: M LABSMTC 10:57
PROVIDERS: ATTEND Anesthesiology
DX: Z01.818 Encounter for other preprocedural examination (principal); Z11.52 Encounter for screening for COVID-19

== ENCOUNTER 2022-01-20 09:28 | Day surgery (SDC) | payer MEDICARE, MEDICAID ==
[~2022-01-20] VITALS: Ht 171.7 cm; Wt 141.9 kg
[~2022-01-20 09:28] MED LIST changes: +LR 1,000 ML IV ONE
[2022-01-20 10:01] LABS: HEMATOCRIT 46.8 % (42.0-52.0); HEMOGLOBIN 15.6 g/dl (13.5-17.5); MEAN CORPUSCULAR HEMOGLOBIN 29.2 pg (27.0-33.0); MEAN CORPUSCULAR HGB CONC 33.3 g/dl (32.0-36.5); MEAN CORPUSCULAR VOLUME 87.5 fl (80.0-96.0); PLATELET COUNT, AUTOMATED 215 10^3/uL (150-450); RED BLOOD COUNT 5.35 10^6/uL (4.30-6.10); WHITE BLOOD COUNT 7.7 10^3/uL (4.0-10.0)
[2022-01-20] MEDS ORDERED: ONDANSETRON 4MG/2ML VIAL As Ordered ONE (10:05)
[2022-01-20] MEDS ORDERED: ROCURONIUM BROMIDE 50 MG/5 ML VIAL As Ordered ONE (10:05)
[2022-01-20] MEDS ORDERED: MIDAZOLAM INJ 2MG/2ML VIAL (J2250 PER 1MG) As Ordered ONE (10:05)
[2022-01-20] MEDS ORDERED: LIDOCAINE 2% 100MG/5ML SDV (FOR ANES.) As Ordered ONE (10:05)
[2022-01-20] MEDS ORDERED: dexameTHASONE 4 MG/ML 1ML VIAL (J1100 PER 1MG) As Ordered ONE (10:05)
[2022-01-20] MEDS ORDERED: SUGAMMADEX SODIUM 500 MG/5 ML VIAL (BRIDION) As Ordered ONE ×2 (10:05→11:14)
[2022-01-20] MEDS ORDERED: fentaNYL 100 MCG/2 ML INJECTION As Ordered ONE (10:05)
[2022-01-20] MEDS ORDERED: propofoL 200 MG/20 ML VIAL As Ordered ONE ×2 (10:06→11:09)
[2022-01-20] MEDS ORDERED: ACETAMINOPHEN 1000MG 100ML IV BTL (OFIRMEV) (J0131 PER 10MG) As Ordered ONE (10:11)
[2022-01-20 10:31] LABS: CALCIUM LEVEL 9.8 MG/DL (8.8-10.2); CREATININE FOR GFR 1.33 MG/DL (0.70-1.30); GLOMERULAR FILTRATION RATE 57.6 (>49); POTASSIUM SERUM 4.1 MEQ/L (3.5-5.1)
[2022-01-20] MEDS ORDERED: LIDOCAINE W/EPINEPHRINE 1% 20ML VIAL As Ordered ONE (10:56)
[2022-01-20] MEDS ORDERED: dexameTHASONE 4 MG/ML 1ML VIAL (J1100 PER 1MG) IV ONE (11:05)
[2022-01-20] MEDS ORDERED: VASOPRESSIN INJ 20 UNITS/ML VIAL As Ordered ONE (11:28)
[2022-01-20] MEDS ORDERED: ONDANSETRON 4MG/2ML VIAL IV PRN (12:15)
[2022-01-20] MEDS ORDERED: LR 1,000 ML IV SCH (12:15)
[2022-01-20 13:05] VITALS: BP 133/79
== END 2022-01-20 13:20 | disposition home or self-care (01) ==
LOC: M SDC 09:28
PROVIDERS: ATTEND Otolaryngology
DX: K13.29 Other disturbances of oral epithelium, including tongue (principal); B07.9 Viral wart, unspecified; L85.9 Epidermal thickening, unspecified; I13.10 Hypertensive heart and chronic kidney disease without heart failure, with stage 1 through stage 4 chronic kidney disease, or unspecified chronic kidney disease; E78.00 Pure hypercholesterolemia, unspecified; E11.22 Type 2 diabetes mellitus with diabetic chronic kidney disease; E03.9 Hypothyroidism, unspecified; M10.9 Gout, unspecified; K21.9 Gastro-esophageal reflux disease without esophagitis; M17.0 Bilateral primary osteoarthritis of knee; M47.819 Spondylosis without myelopathy or radiculopathy, site unspecified; F32.9 Major depressive disorder, single episode, unspecified; J45.909 Unspecified asthma, uncomplicated; N18.30 Chronic kidney disease, stage 3 unspecified; G47.33 Obstructive sleep apnea (adult) (pediatric); R06.83 Snoring; E66.01 Morbid (severe) obesity due to excess calories; Z68.42 Body mass index [BMI] 45.0-49.9, adult; N40.0 Benign prostatic hyperplasia without lower urinary tract symptoms; Z87.891 Personal history of nicotine dependence; Z88.2 Allergy status to sulfonamides; Z79.899 Other long term (current) drug therapy; Z79.82 Long term (current) use of aspirin; Z79.84 Long term (current) use of oral hypoglycemic drugs; Z79.4 Long term (current) use of insulin
CPT/HCPCS: 11440; 36415; 80048; 85027; 88305; 93005; J0131; J1100; J2250; J2405; J3010

== ENCOUNTER → 2022-02-22 | Outpatient (REF) | payer MEDICARE, MEDICAID ==
[~2022-02-22] MED LIST changes: -LR 1,000 ML IV ONE
[2022-02-22 12:26] LABS: MALB URINE SIEMENS 90.1 MG/L; MAU/CREAT RATIO 145.3 MCG/MG (0.0-30.0)
== END ==
LOC: M SFHCLERA 11:06
PROVIDERS: ATTEND Family Medicine
DX: R32 Unspecified urinary incontinence (principal); E11.22 Type 2 diabetes mellitus with diabetic chronic kidney disease

== ENCOUNTER → 2022-03-09 | Outpatient (CLI) | payer MEDICAID, MEDICARE | LOC: M WHC 12:10 | PROVIDERS: ATTEND Family Medicine | DX: R32 Unspecified urinary incontinence (principal) ==

== ENCOUNTER → 2022-03-11 | Outpatient (REF) | payer MEDICARE, MEDICAID ==
[2022-03-11 13:54] LABS: APPEARANCE, URINE HAZY (CLEAR); BACTERIA, URINE AUTO 2+ (NEGATIVE); BILIRUBIN, URINE AUTO NEGATIVE (NEGATIVE); BLOOD, URINE BLOOD NEGATIVE (NEGATIVE); COLOR, URINE YELLOW (YELLOW); GLUCOSE, URINE (UA) AUTO 3+ mg/dL (NEGATIVE); KETONE, URINE AUTO NEGATIVE (NEGATIVE); LEUKOCYTE ESTERASE, URINE AUTO 1+ (NEGATIVE); NITRITE, URINE AUTO NEGATIVE (NEGATIVE); PROTEIN, URINE AUTO 1+ mg/dL (NEGATIVE); RBC, URINE AUTO 3 /HPF (0-3); SPECIFIC GRAVITY URINE AUTO 1.021 (1.002-1.035); SQUAMOUS EPITHELIAL CELL UR AU 9 /HPF (0-6); UROBILINOGEN, URINE AUTO 0.2 mg/dL (0.0-2.0); WBC, URINE AUTO 42 /HPF (0-3)
== END ==
LOC: M SMT 13:04
PROVIDERS: ATTEND Physician Assistant
DX: N30.90 Cystitis, unspecified without hematuria (principal)

== ENCOUNTER 2022-04-17 15:09 | Inpatient (IN) | payer MEDICARE, MEDICAID ==
[~2022-04-17] VITALS: Ht 170.2 cm; Wt 140.1 kg
[2022-04-17 16:21] LABS: BASO % 0.3 % (0.0-1.0); EOS # 0.1 10^3/uL (0.0-0.5); EOS % 2.2 % (0.0-3.0); HEMATOCRIT 41.2 % (42.0-52.0); HEMOGLOBIN 13.8 g/dl (13.5-17.5); LYMPH # 2.3 10^3/uL (1.5-5.0); LYMPH % 35.7 % (24.0-44.0); MEAN CORPUSCULAR HEMOGLOBIN 29.1 pg (27.0-33.0); MEAN CORPUSCULAR HGB CONC 33.5 g/dl (32.0-36.5); MEAN CORPUSCULAR VOLUME 86.7 fl (80.0-96.0); MONO # 0.7 10^3/uL (0.0-0.8); MONO % 10.4 % (2.0-8.0); NEUTROPHILS # 3.3 10^3/uL (1.5-8.5); NEUTROPHILS % 51.2 % (36.0-66.0); PLATELET COUNT, AUTOMATED 221 10^3/uL (150-450); RED BLOOD COUNT 4.75 10^6/uL (4.30-6.10); WHITE BLOOD COUNT 6.4 10^3/uL (4.0-10.0)
[2022-04-17 16:31] LABS: INR 0.92; PROTHROMBIN TIME 12.8 SECONDS (12.7-14.5)
[2022-04-17 16:32] LABS: PARTIAL THROMBOPLASTIN TIME 30.5 SECONDS (25.9-37.0)
[2022-04-17 16:47] LABS: CK-MB VALUE MASS 1.2 NG/ML (<3.6); MB/CK RELATIVE INDEX 1.17 (< OR =4)
[2022-04-17] MEDS ORDERED: NS 500 ML IV SCH (17:05)
[2022-04-17] MEDS ORDERED: ASPIRIN 81 MG CHEW TABLET PO ONE (17:15)
[2022-04-17] MEDS ORDERED: HOME MED LIST COMPLETE! XX SCH (18:05)
[2022-04-17] MEDS ORDERED: ROSU40TA4 PO (18:05)
[2022-04-17] MEDS ORDERED: NITROGLYCERIN 0.4 MG SUBL TABLET SL PRN (18:10)
[2022-04-17] MEDS ORDERED: DEXTROSE 50% 50 ML SYRINGE IV PRN (18:10)
[2022-04-17] MEDS ORDERED: GLUCOSE 4GM CHEW TABLET PO PRN (18:10)
[2022-04-17] MEDS ORDERED: GLUCAGON INJ 1MG VIAL SC PRN (18:10)
[2022-04-17 18:15] LABS: CHOLESTEROL RISK RATIO 2.684 (<5)
[2022-04-17 19:26] LABS: RSV AMPLIFICATION NEGATIVE (NEGATIVE)
[2022-04-17 19:45] VITALS: BP 161/89
[2022-04-17 20:00] VITALS: O2SAT 96
[2022-04-17] MEDS: ATORVASTATIN 20 MG TAB PO SCH (20:54)
[2022-04-17] MEDS: INSULIN LISPRO (NovoLOG) PER UNIT SC SCH (20:56)
[2022-04-17] MEDS: TAMSULOSIN 0.4 MG CAP PO SCH (20:56)
[2022-04-17] MEDS: GABAPENTIN 400MG CAP PO SCH (20:56)
[2022-04-17] MEDS: LEVEMIR (INSULIN DETEMIR) 1 UNITS/0.01ML SC SCH (20:56)
[2022-04-17 21:00] VITALS: O2SAT 95
[2022-04-17] MEDS: HEPARIN SOD (PORCINE) 5000UNITS/ML 1ML VIAL/SYRINGE SQ SCH (21:01)
[2022-04-17 22:00] VITALS: O2SAT 95
[2022-04-17 23:00] VITALS: O2SAT 94
[2022-04-18] VITALS: BP 131/73; O2SAT 96
[2022-04-18 04:00] VITALS: BP 138/76
[2022-04-18] MEDS: HEPARIN SOD (PORCINE) 5000UNITS/ML 1ML VIAL/SYRINGE SQ SCH ×3 (05:02→21:09)
[2022-04-18] MEDS: LEVOTHYROXINE 100MCG TABLET (0.1MG) PO SCH (05:02)
[2022-04-18 06:24] LABS: BASO % 0.1 % (0.0-1.0); EOS # 0.1 10^3/uL (0.0-0.5); EOS % 1.5 % (0.0-3.0); HEMATOCRIT 41.9 % (42.0-52.0); HEMOGLOBIN 13.6 g/dl (13.5-17.5); LYMPH # 1.9 10^3/uL (1.5-5.0); LYMPH % 26.4 % (24.0-44.0); MEAN CORPUSCULAR HEMOGLOBIN 28.8 pg (27.0-33.0); MEAN CORPUSCULAR HGB CONC 32.5 g/dl (32.0-36.5); MEAN CORPUSCULAR VOLUME 88.6 fl (80.0-96.0); MONO # 0.5 10^3/uL (0.0-0.8); MONO % 7.3 % (2.0-8.0); NEUTROPHILS # 4.7 10^3/uL (1.5-8.5); NEUTROPHILS % 64.6 % (36.0-66.0); PLATELET COUNT, AUTOMATED 209 10^3/uL (150-450); RED BLOOD COUNT 4.73 10^6/uL (4.30-6.10); WHITE BLOOD COUNT 7.3 10^3/uL (4.0-10.0)
[2022-04-18 06:52] LABS: BLOOD UREA NITROGEN 22 MG/DL (7-18); CALCIUM LEVEL 9.2 MG/DL (8.8-10.2); CARBON DIOXIDE LEVEL 26 MEQ/L (21-32); CHLORIDE LEVEL 107 MEQ/L (98-107); GLOMERULAR FILTRATION RATE > 60.0 (>49); GLUCOSE, FASTING 223 MG/DL (70-100); MAGNESIUM LEVEL 2.4 MG/DL (1.8-2.4); SODIUM LEVEL 141 MEQ/L (136-145)
[2022-04-18 07:11] LABS: HEMOGLOBIN A1c 9.4 %
[2022-04-18 07:15] VITALS: BP 162/58
[2022-04-18] MEDS: FINASTERIDE 5MG TAB PO SCH (08:18)
[2022-04-18] MEDS: FENOFIBRATE 48MG TABLET (TRICOR) PO SCH (08:19)
[2022-04-18] MEDS: VITAMIN B COMPLEX/VIT C CAP PO SCH (08:19)
[2022-04-18] MEDS: INSULIN LISPRO (NovoLOG) PER UNIT SC SCH ×4 (08:19→20:20)
[2022-04-18] MEDS: ASPIRIN 81 MG CHEW TABLET PO SCH (08:19)
[2022-04-18] MEDS: LEVEMIR (INSULIN DETEMIR) 1 UNITS/0.01ML SC SCH ×2 (08:20→20:20)
[2022-04-18 12:05] VITALS: BP 140/78
[2022-04-18 16:41] VITALS: BP 152/60
[2022-04-18 19:30] LABS: CK-MB VALUE MASS 22.4 NG/ML (<3.6); MB/CK RELATIVE INDEX 6.73 (< OR =4)
[2022-04-18 20:00] VITALS: BP 148/83
[2022-04-18] MEDS: ATORVASTATIN 20 MG TAB PO SCH (20:20)
[2022-04-18] MEDS: GABAPENTIN 400MG CAP PO SCH (20:20)
[2022-04-18] MEDS: TAMSULOSIN 0.4 MG CAP PO SCH (20:20)
[2022-04-18 21:56] LABS: MB/CK RELATIVE INDEX 6.98 (< OR =4)
[2022-04-18] MEDS ORDERED: CLOPIDOGREL 300 MG TAB (PLAVIX) PO STA (22:17)
[2022-04-19] VITALS: BP 122/58
[2022-04-19 01:23] LABS: CK-MB VALUE MASS 23.6 NG/ML (<3.6); MB/CK RELATIVE INDEX 6.54 (< OR =4)
[2022-04-19] MEDS ORDERED: GI COCKTAIL 50ML BTL(HYOSCYAMINE/MAALOX/LIDOCAINE VISCOUS)(1:3:1) PO ONE (02:30)
[2022-04-19 03:51] LABS: CK-MB VALUE MASS 23.6 NG/ML (<3.6); MB/CK RELATIVE INDEX 6.61 (< OR =4)
[2022-04-19 04:00] VITALS: BP 146/84
[2022-04-19 05:00] VITALS: BP 174/84
[2022-04-19] MEDS ORDERED: ASPI81CH8 PO (05:24)
[2022-04-19] MEDS ORDERED: PLAV1TAB2 PO (05:24)
[2022-04-19 05:36] LABS: BASO % 0.3 % (0.0-1.0); EOS # 0.1 10^3/uL (0.0-0.5); EOS % 1.7 % (0.0-3.0); HEMATOCRIT 42.6 % (42.0-52.0); HEMOGLOBIN 13.7 g/dl (13.5-17.5); LYMPH # 2.2 10^3/uL (1.5-5.0); LYMPH % 34.1 % (24.0-44.0); MEAN CORPUSCULAR HEMOGLOBIN 28.4 pg (27.0-33.0); MEAN CORPUSCULAR HGB CONC 32.2 g/dl (32.0-36.5); MEAN CORPUSCULAR VOLUME 88.2 fl (80.0-96.0); MONO # 0.6 10^3/uL (0.0-0.8); MONO % 8.6 % (2.0-8.0); NEUTROPHILS # 3.5 10^3/uL (1.5-8.5); PLATELET COUNT, AUTOMATED 196 10^3/uL (150-450); RED BLOOD COUNT 4.83 10^6/uL (4.30-6.10); WHITE BLOOD COUNT 6.4 10^3/uL (4.0-10.0)
[2022-04-19 05:54] LABS: BLOOD UREA NITROGEN 19 MG/DL (7-18); CARBON DIOXIDE LEVEL 25 MEQ/L (21-32); CHLORIDE LEVEL 105 MEQ/L (98-107); CREATININE FOR GFR 0.97 MG/DL (0.70-1.30); GLOMERULAR FILTRATION RATE > 60.0 (>49); GLUCOSE, FASTING 270 MG/DL (70-100); MAGNESIUM LEVEL 2.3 MG/DL (1.8-2.4); POTASSIUM SERUM 4.2 MEQ/L (3.5-5.1); SODIUM LEVEL 139 MEQ/L (136-145)
[2022-04-19] MEDS: HEPARIN SOD (PORCINE) 5000UNITS/ML 1ML VIAL/SYRINGE SQ SCH (06:09)
[2022-04-19] MEDS: LEVOTHYROXINE 100MCG TABLET (0.1MG) PO SCH (06:09)
[2022-04-19 06:10] LABS: CK-MB VALUE MASS 23.8 NG/ML (<3.6); MB/CK RELATIVE INDEX 6.98 (< OR =4)
[2022-04-19] MEDS: INSULIN LISPRO (NovoLOG) PER UNIT SC SCH (07:30)
[2022-04-19] MEDS: FINASTERIDE 5MG TAB PO SCH (07:53)
[2022-04-19] MEDS: LEVEMIR (INSULIN DETEMIR) 1 UNITS/0.01ML SC SCH (07:53)
[2022-04-19] MEDS: ASPIRIN 81 MG CHEW TABLET PO SCH (07:53)
[2022-04-19] MEDS: VITAMIN B COMPLEX/VIT C CAP PO SCH (07:54)
[2022-04-19] MEDS: FENOFIBRATE 48MG TABLET (TRICOR) PO SCH (07:54)
== END 2022-04-19 09:00 | disposition short-term general hospital (02) | DRG 65 ==
LOC: M ED 15:09 → M ED INP 17:52 → ENRESERV 19:30 → M PCU 19:46
PROVIDERS: ADMIT Internal Medicine; ATTEND Internal Medicine
DX: I63.9 Cerebral infarction, unspecified (principal); I13.0 Hypertensive heart and chronic kidney disease with heart failure and stage 1 through stage 4 chronic kidney disease, or unspecified chronic kidney disease; G81.94 Hemiplegia, unspecified affecting left nondominant side; I50.9 Heart failure, unspecified; I25.10 Atherosclerotic heart disease of native coronary artery without angina pectoris; E11.22 Type 2 diabetes mellitus with diabetic chronic kidney disease; E78.5 Hyperlipidemia, unspecified; E03.9 Hypothyroidism, unspecified; N18.30 Chronic kidney disease, stage 3 unspecified; E11.40 Type 2 diabetes mellitus with diabetic neuropathy, unspecified; M10.9 Gout, unspecified; M19.90 Unspecified osteoarthritis, unspecified site; N40.0 Benign prostatic hyperplasia without lower urinary tract symptoms; Z87.891 Personal history of nicotine dependence; Z79.82 Long term (current) use of aspirin; Z79.4 Long term (current) use of insulin; Z79.899 Other long term (current) drug therapy; Z88.2 Allergy status to sulfonamides; Z88.8 Allergy status to other drugs, medicaments and biological substances

== ENCOUNTER → 2022-11-14 | Outpatient (REF) | payer MEDICARE, MEDICAID ==
[~2022-11-14] MED LIST changes: +ASPI81CH8 PO; +CLOP75TA99 PO; +ROSU40TA4 PO
[2022-11-14 18:20] LABS: MAU/CREAT RATIO 127.2 MCG/MG (0.0-30.0)
== END ==
LOC: M LAB REF 17:05
PROVIDERS: ATTEND Nurse Practitioner Family
DX: E11.22 Type 2 diabetes mellitus with diabetic chronic kidney disease (principal)

== ENCOUNTER → 2022-12-07 | Outpatient (CLI) | payer MEDICARE, MEDICAID ==
[2022-12-07 12:17] LABS: HEMATOCRIT 48.7 % (42.0-52.0); HEMOGLOBIN 15.6 g/dl (13.5-17.5); MEAN CORPUSCULAR HEMOGLOBIN 28.8 pg (27.0-33.0); PLATELET COUNT, AUTOMATED 209 10^3/uL (150-450); RED BLOOD COUNT 5.41 10^6/uL (4.30-6.10); WHITE BLOOD COUNT 7.3 10^3/uL (4.0-10.0)
[2022-12-07 12:47] LABS: BLOOD UREA NITROGEN 30 MG/DL (9-23); CALCIUM LEVEL 9.2 MG/DL (8.3-10.6); CARBON DIOXIDE LEVEL 31 MMOL/L (20-31); CHLORIDE LEVEL 100 MMOL/L (98-107); CHOLESTEROL LEVEL 108 MG/DL (<200); CHOLESTEROL RISK RATIO 2.98 (<5); CREATININE FOR GFR 0.97 MG/DL (0.70-1.30); GLOMERULAR FILTRATION RATE > 60.0 (>49); GLUCOSE, FASTING 257 MG/DL (74-106); HDL CHOLESTEROL 36.2 MG/DL (>40); LDL CHOLESTEROL 45.8 MG/DL (<100); NON-HDL-C 72 MG/DL; POTASSIUM SERUM 4.3 MMOL/L (3.5-5.1); SODIUM LEVEL 138 MMOL/L (136-145); TRIGLYCERIDES LEVEL 130 MG/DL (<150)
[2022-12-07 12:50] LABS: FREE T4 1.16 NG/DL (0.89-1.76)
== END ==
LOC: M PLALAB 09:17
PROVIDERS: ATTEND Physician Assistant
DX: I25.10 Atherosclerotic heart disease of native coronary artery without angina pectoris (principal)

== ENCOUNTER 2023-01-05 08:37 | Emergency (ER) | payer MEDICARE, MEDICAID ==
[~2023-01-05] VITALS: Ht 170.2 cm; Wt 136.4 kg
[2023-01-05 09:27] LABS: BASO % 0.3 % (0.0-1.0); EOS # 0.2 10^3/uL (0.0-0.5); EOS % 1.6 % (0.0-3.0); HEMATOCRIT 49.6 % (42.0-52.0); HEMOGLOBIN 15.9 g/dl (13.5-17.5); LYMPH % 19.7 % (24.0-44.0); MEAN CORPUSCULAR HEMOGLOBIN 28.8 pg (27.0-33.0); MEAN CORPUSCULAR HGB CONC 32.1 g/dl (32.0-36.5); MEAN CORPUSCULAR VOLUME 89.7 fl (80.0-96.0); MONO # 0.8 10^3/uL (0.0-0.8); NEUTROPHILS # 7.1 10^3/uL (1.5-8.5); NEUTROPHILS % 70.1 % (36.0-66.0); PLATELET COUNT, AUTOMATED 234 10^3/uL (150-450); RED BLOOD COUNT 5.53 10^6/uL (4.30-6.10); WHITE BLOOD COUNT 10.2 10^3/uL (4.0-10.0)
[2023-01-05] MEDS ORDERED: ONDANSETRON 4MG 2ML VIAL IV ONE (09:50)
[2023-01-05] MEDS ORDERED: NS 4,090 ML in IV 1 EA IV ONE (09:50)
[2023-01-05 10:04] LABS: CK-MB VALUE MASS < 1.0 NG/ML (<3.6)
[2023-01-05 10:06] LABS: ALBUMIN 3.6 G/DL (3.2-5.2); ALKALINE PHOSPHATASE 139 U/L (46-116); ALT/SGPT 33 U/L (7.0-40); AST/SGOT 34 U/L (<34); BILIRUBIN,DIRECT 0.3 MG/DL (<0.4); BILIRUBIN,TOTAL 0.7 MG/DL (0.3-1.2); BLOOD UREA NITROGEN 20 MG/DL (9-23); CALCIUM LEVEL 8.5 MG/DL (8.3-10.6); CARBON DIOXIDE LEVEL 22 MMOL/L (20-31); CHLORIDE LEVEL 109 MMOL/L (98-107); CREATININE FOR GFR 0.91 MG/DL (0.70-1.30); GLOMERULAR FILTRATION RATE > 60.0 (>49); GLUCOSE, FASTING 128 MG/DL (74-106); POTASSIUM SERUM 3.3 MMOL/L (3.5-5.1); SODIUM LEVEL 140 MMOL/L (136-145); TOTAL PROTEIN 6.9 G/DL (5.7-8.2)
[2023-01-05 10:08] LABS: THYROID STIMULATING HORMONE 2.665 uIU/ML (0.55-4.78)
[2023-01-05 10:11] LABS: CPK CREATINE PHOSPHOKINASE 62 U/L (46-171); MB/CK RELATIVE INDEX 1.61 (< OR =4)
[2023-01-05 10:14] LABS: RSV AMPLIFICATION NEGATIVE (NEGATIVE)
[2023-01-05] MEDS ORDERED: ONDA4TAB6 PO (13:54)
[2023-01-05 15:47] VITALS: BP 115/63
== END 2023-01-05 15:58 | disposition home or self-care (01) ==
LOC: EDBD 08:37 → M ED 08:37
DX: K52.9 Noninfective gastroenteritis and colitis, unspecified (principal); I13.0 Hypertensive heart and chronic kidney disease with heart failure and stage 1 through stage 4 chronic kidney disease, or unspecified chronic kidney disease; N18.30 Chronic kidney disease, stage 3 unspecified; I50.9 Heart failure, unspecified; E11.22 Type 2 diabetes mellitus with diabetic chronic kidney disease; E11.40 Type 2 diabetes mellitus with diabetic neuropathy, unspecified; I25.10 Atherosclerotic heart disease of native coronary artery without angina pectoris; M10.9 Gout, unspecified; E03.9 Hypothyroidism, unspecified; E78.5 Hyperlipidemia, unspecified; Z79.01 Long term (current) use of anticoagulants; Z79.890 Hormone replacement therapy; Z79.82 Long term (current) use of aspirin; Z79.899 Other long term (current) drug therapy; Z79.4 Long term (current) use of insulin; Z79.84 Long term (current) use of oral hypoglycemic drugs; Z88.1 Allergy status to other antibiotic agents; Z88.2 Allergy status to sulfonamides; Z98.890 Other specified postprocedural states; Z87.891 Personal history of nicotine dependence
CPT/HCPCS: 80048; 80076; 82550; 82553; 84443; 84484; 85025; 87631; 93005; 96374; 99285; J2405

== ENCOUNTER → 2023-01-06 | Outpatient (REF) | payer MEDICARE, MEDICAID ==
[~2023-01-06] MED LIST changes: +ONDA4TAB6 PO
== END ==
LOC: M LAB REF 08:33
PROVIDERS: ATTEND Internal Medicine
DX: R19.7 Diarrhea, unspecified (principal)

== ENCOUNTER → 2023-04-26 | Outpatient (CLI) | payer MEDICARE, MEDICAID | LOC: M PLALAB 08:50 | PROVIDERS: ATTEND Family Medicine | DX: E03.9 Hypothyroidism, unspecified (principal) ==

== ENCOUNTER → 2023-12-25 | Outpatient (CLI) | payer MEDICARE, MEDICAID ==
[~2023-12-25] MED LIST changes: -GABA-283 PO; +GABA-284 PO
[2023-12-25 15:35] LABS: ALBUMIN 3.5 G/DL (3.2-5.2); ALKALINE PHOSPHATASE 109 U/L (46-116); ALT/SGPT 34 U/L (7.0-40); AST/SGOT 16 U/L (<34); BILIRUBIN,TOTAL 0.6 MG/DL (0.3-1.2); BLOOD UREA NITROGEN 28 MG/DL (9-23); CALCIUM LEVEL 9.2 MG/DL (8.3-10.6); CARBON DIOXIDE LEVEL 30 MMOL/L (20-31); CHLORIDE LEVEL 104 MMOL/L (98-107); CHOLESTEROL LEVEL 111 MG/DL (<200); CHOLESTEROL RISK RATIO 3.28 (<5); GLOMERULAR FILTRATION RATE > 60.0 (>49); GLUCOSE, FASTING 299 MG/DL (74-106); HDL CHOLESTEROL 33.8 MG/DL (>40); LDL CHOLESTEROL 22.4 MG/DL (<100); NON-HDL-C 77.2 MG/DL; POTASSIUM SERUM 4.4 MMOL/L (3.5-5.1); SODIUM LEVEL 141 MMOL/L (136-145); TOTAL PROTEIN 6.9 G/DL (5.7-8.2); TRIGLYCERIDES LEVEL 274 MG/DL (<150)
== END ==
LOC: M PLALAB 10:37
PROVIDERS: ATTEND Family Medicine
DX: E78.5 Hyperlipidemia, unspecified (principal); E11.22 Type 2 diabetes mellitus with diabetic chronic kidney disease; E03.9 Hypothyroidism, unspecified

== ENCOUNTER → 2023-12-25 | Outpatient (CLI) | payer MEDICARE, MEDICAID ==
[2023-12-25 15:24] LABS: HEMOGLOBIN A1c 6.6 % (4.0-6.0)
== END ==
LOC: M PLALAB 10:31
PROVIDERS: ATTEND Internal Medicine Endocrinology, Diabetes & Metabolism
DX: E11.22 Type 2 diabetes mellitus with diabetic chronic kidney disease (principal)

== ENCOUNTER → 2024-04-12 | Outpatient (CLI) | payer MEDICARE, MEDICAID ==
[~2024-04-12] MED LIST changes: -ROSU10TA6 PO; +ROSU10TA61 PO; -ROSU40TA4 PO; +ROSU40TA63 PO
[2024-04-12 09:55] LABS: BASO % 0.4 % (0.0-1.0); EOS # 0.2 10^3/uL (0.0-0.5); EOS % 2.4 % (0.0-3.0); HEMATOCRIT 44.3 % (42.0-52.0); HEMOGLOBIN 14.1 g/dl (13.5-17.5); LYMPH # 2.7 10^3/uL (1.5-5.0); LYMPH % 33.7 % (24.0-44.0); MEAN CORPUSCULAR HEMOGLOBIN 29.7 pg (27.0-33.0); MEAN CORPUSCULAR HGB CONC 31.8 g/dl (32.0-36.5); MEAN CORPUSCULAR VOLUME 93.5 fl (80.0-96.0); MONO # 0.5 10^3/uL (0.0-0.8); MONO % 6.9 % (2.0-8.0); NEUTROPHILS # 4.4 10^3/uL (1.5-8.5); NEUTROPHILS % 56.2 % (36.0-66.0); PLATELET COUNT, AUTOMATED 181 10^3/uL (150-450); RED BLOOD COUNT 4.74 10^6/uL (4.30-6.10); WHITE BLOOD COUNT 7.9 10^3/uL (4.0-10.0)
[2024-04-12 10:31] LABS: ALBUMIN 3.5 G/DL (3.2-5.2); ALKALINE PHOSPHATASE 99 U/L (46-116); ALT/SGPT 32 U/L (7.0-40); AST/SGOT 19 U/L (<34); BILIRUBIN,TOTAL 0.7 MG/DL (0.3-1.2); BLOOD UREA NITROGEN 31 MG/DL (9-23); CALCIUM LEVEL 8.5 MG/DL (8.3-10.6); CARBON DIOXIDE LEVEL 27 MMOL/L (20-31); CHLORIDE LEVEL 105 MMOL/L (98-107); CREATININE FOR GFR 0.97 MG/DL (0.70-1.30); GLOMERULAR FILTRATION RATE > 60.0 (>49); GLUCOSE, FASTING 306 MG/DL (74-106); POTASSIUM SERUM 3.9 MMOL/L (3.5-5.1); SODIUM LEVEL 140 MMOL/L (136-145); TOTAL PROTEIN 6.5 G/DL (5.7-8.2); VITAMIN B12 LEVEL 475 PG/ML (211-911)
[2024-04-12 10:36] LABS: FOLATE > 24.00 NG/ML (>5.4)
== END ==
LOC: M PLALAB 08:53
PROVIDERS: ATTEND Family Medicine
DX: N18.9 Chronic kidney disease, unspecified (principal); E11.22 Type 2 diabetes mellitus with diabetic chronic kidney disease

== ENCOUNTER → 2024-06-13 | Outpatient (CLI) | payer MEDICARE ==
[~2024-06-13] MED LIST changes: +ONDA-282 PO; -ONDA4TAB6 PO
[2024-06-13 11:10] LABS: HEMOGLOBIN A1c 6.9 % (4.0-6.0)
== END ==
LOC: M PLALAB 08:46
PROVIDERS: ATTEND Family Medicine
DX: E11.22 Type 2 diabetes mellitus with diabetic chronic kidney disease (principal)

== ENCOUNTER 2024-09-09 09:10 | Day surgery (SDC) | payer MEDICARE, MEDICAID ==
[~2024-09-09] VITALS: Ht 170.2 cm; Wt 139.9 kg
[~2024-09-09 09:10] MED LIST changes: +ALLO100T PO; +ATOR80TA59 PO; -B-CO1TAB12 PO; +B-CO1TAB14 PO; +COMB0.2S OU; +ELIQ5TAB PO; +EZET10TA21 PO; +FERR1TAB8 PO; +FOLI1TAB11 PO; +GLIP10TA15 PO; -GLIP10TA6 PO; +INSUDET SC; +NS 250 ML IV ONE; +PANT20TA6 PO; -ROSU40TA63 PO; +ROSU40TA81 PO; +SUPETAB44 PO; +SYNT50TA PO; +TRUL0.5I SC; +VITA100024 PO; +lispro SC
[2024-09-09] MEDS ORDERED: propofoL 200 MG/20 ML VIAL As Ordered ONE (10:49)
[2024-09-09] MEDS ORDERED: fentaNYL 100 MCG/2 ML INJECTION As Ordered ONE (10:50)
[2024-09-09 11:50] VITALS: TEMP 97.8
[2024-09-09 12:15] VITALS: BP 159/86; O2SAT 97
== END 2024-09-09 12:20 | disposition home or self-care (01) ==
LOC: M OPP 09:10
PROVIDERS: ATTEND Internal Medicine Gastroenterology
DX: Z12.11 Encounter for screening for malignant neoplasm of colon (principal); K63.5 Polyp of colon; K62.1 Rectal polyp; K64.8 Other hemorrhoids; Z86.0100 Personal history of colon polyps, unspecified; K21.9 Gastro-esophageal reflux disease without esophagitis; E11.9 Type 2 diabetes mellitus without complications; I10 Essential (primary) hypertension; E78.00 Pure hypercholesterolemia, unspecified; N28.9 Disorder of kidney and ureter, unspecified; Z86.73 Personal history of transient ischemic attack (TIA), and cerebral infarction without residual deficits; Z95.0 Presence of cardiac pacemaker; N40.0 Benign prostatic hyperplasia without lower urinary tract symptoms; E03.9 Hypothyroidism, unspecified; J45.909 Unspecified asthma, uncomplicated; Z79.899 Other long term (current) drug therapy; Z79.01 Long term (current) use of anticoagulants; Z88.2 Allergy status to sulfonamides; Z88.1 Allergy status to other antibiotic agents; Z95.1 Presence of aortocoronary bypass graft; Z87.891 Personal history of nicotine dependence; G47.30 Sleep apnea, unspecified
CPT/HCPCS: 45385; 88305; J3010

== ENCOUNTER 2024-10-12 08:38 | Emergency (ER) | payer MEDICARE, MEDICAID ==
[~2024-10-12] VITALS: Ht 177.8 cm; Wt 142.4 kg
[~2024-10-12 08:38] MED LIST changes: -NS 250 ML IV ONE
[2024-10-12 09:10] LABS: BASO % 0.3 % (0.0-1.0); EOS # 0.2 10^3/uL (0.0-0.5); EOS % 2.3 % (0.0-3.0); HEMATOCRIT 44.1 % (42.0-52.0); HEMOGLOBIN 14.1 g/dl (13.5-17.5); LYMPH # 1.7 10^3/uL (1.5-5.0); LYMPH % 26.1 % (24.0-44.0); MEAN CORPUSCULAR HEMOGLOBIN 29.7 pg (27.0-33.0); MEAN CORPUSCULAR VOLUME 92.8 fl (80.0-96.0); MONO # 0.4 10^3/uL (0.0-0.8); MONO % 5.8 % (2.0-8.0); NEUTROPHILS # 4.3 10^3/uL (1.5-8.5); NEUTROPHILS % 64.9 % (36.0-66.0); PLATELET COUNT, AUTOMATED 162 10^3/uL (150-450); RED BLOOD COUNT 4.75 10^6/uL (4.30-6.10); WHITE BLOOD COUNT 6.6 10^3/uL (4.0-10.0)
[2024-10-12] MEDS: MORPHINE 2 MG/ML 1ML VIAL IV ONE (09:10)
[2024-10-12] MEDS ORDERED: ISOVUE-370 76% 100ML VIAL As Ordered ONE (09:12)
[2024-10-12 09:44] VITALS: BP 133/70
[2024-10-12] MEDS: NITROGLYCERIN 0.4MG SUBL TABLET SL PRN (09:44)
[2024-10-12] MEDS: PANTOPRAZOLE 40MG VIAL IV ONE (09:45)
[2024-10-12 09:47] LABS: INR 0.95; PARTIAL THROMBOPLASTIN TIME 31.1 SECONDS (24.8-34.2)
[2024-10-12 10:30] LABS: ALBUMIN 3.3 G/DL (3.2-5.2); BILIRUBIN,DIRECT 0.2 MG/DL (<0.4); BILIRUBIN,TOTAL 0.6 MG/DL (0.3-1.2); TOTAL PROTEIN 6.8 G/DL (5.7-8.2)
[2024-10-12 10:35] LABS: BLOOD UREA NITROGEN 36 MG/DL (9-23); CALCIUM LEVEL 8.9 MG/DL (8.3-10.6); CARBON DIOXIDE LEVEL 24 MMOL/L (20-31); CHLORIDE LEVEL 107 MMOL/L (98-107); CK-MB VALUE MASS 2.5 NG/ML (<3.6); CPK CREATINE PHOSPHOKINASE 90 U/L (46-171); CREATININE FOR GFR 1.19 MG/DL (0.70-1.30); GLOMERULAR FILTRATION RATE > 60.0 (>49); GLUCOSE, FASTING 297 MG/DL (74-106); MB/CK RELATIVE INDEX 2.77 (< OR =4); POTASSIUM SERUM 4.4 MMOL/L (3.5-5.1); SODIUM LEVEL 138 MMOL/L (136-145)
[2024-10-12 11:31] LABS: CK-MB VALUE MASS 4.7 NG/ML (<3.6)
[2024-10-12 11:33] LABS: MB/CK RELATIVE INDEX 4.35 (< OR =4)
[2024-10-12] MEDS: HEPARIN SOD (PORCINE) 5000UNITS/ML 1ML VIAL/SYRINGE IV ONE (11:53)
[2024-10-12] MEDS: HEPARIN DRIP 25,000 UNITS in IV 1 EA IV SCH (11:56)
[2024-10-12] MEDS ORDERED: HEPARIN SOD (PORCINE) 5000UNITS/ML 1ML VIAL/SYRINGE IV PRN (12:00)
[2024-10-12 12:15] VITALS: BP 127/64; TEMP 97.8; O2SAT 98
== END 2024-10-12 12:24 | disposition short-term general hospital (02) ==
LOC: EDBD 08:38 → M ED 08:38
DX: I21.4 Non-ST elevation (NSTEMI) myocardial infarction (principal); I25.2 Old myocardial infarction; E11.9 Type 2 diabetes mellitus without complications; I13.0 Hypertensive heart and chronic kidney disease with heart failure and stage 1 through stage 4 chronic kidney disease, or unspecified chronic kidney disease; I50.9 Heart failure, unspecified; E78.5 Hyperlipidemia, unspecified; Z86.73 Personal history of transient ischemic attack (TIA), and cerebral infarction without residual deficits; I25.10 Atherosclerotic heart disease of native coronary artery without angina pectoris; I48.91 Unspecified atrial fibrillation; Z88.1 Allergy status to other antibiotic agents; Z88.2 Allergy status to sulfonamides; J81.1 Chronic pulmonary edema; Z79.899 Other long term (current) drug therapy
CPT/HCPCS: 71045; 71275; 80047; 80048; 80076; 82550; 82553; 83690; 83880; 84484; 85025; 85610; 85730; 93005; 93041; 94760; 99285; J2470; Q9967

== ENCOUNTER → 2024-10-21 | Outpatient (CLI) | payer MEDICARE, MEDICAID ==
[2024-10-21 10:26] LABS: HEMATOCRIT 45.9 % (42.0-52.0); HEMOGLOBIN 14.5 g/dl (13.5-17.5); MEAN CORPUSCULAR HEMOGLOBIN 29.7 pg (27.0-33.0); MEAN CORPUSCULAR HGB CONC 31.6 g/dl (32.0-36.5); MEAN CORPUSCULAR VOLUME 94.1 fl (80.0-96.0); PLATELET COUNT, AUTOMATED 190 10^3/uL (150-450); RED BLOOD COUNT 4.88 10^6/uL (4.30-6.10); WHITE BLOOD COUNT 6.6 10^3/uL (4.0-10.0)
== END ==
LOC: M PLALAB 09:14
PROVIDERS: ATTEND Physician Assistant
DX: R19.5 Other fecal abnormalities (principal)

== ENCOUNTER → 2024-12-30 | Outpatient (REF) | payer MEDICARE, MEDICAID ==
[2024-12-30 17:45] LABS: HEMOGLOBIN A1c 5.5 % (4.0-6.0)
[2024-12-30 17:51] LABS: MAU/CREAT RATIO 358.1 MCG/MG (0.0-30.0)
[2024-12-30 17:54] LABS: ALBUMIN 3.6 G/DL (3.2-5.2); ALKALINE PHOSPHATASE 89 U/L (40-129); ALT/SGPT 37 U/L (7.0-40); AST/SGOT 22 U/L (<34); BILIRUBIN,TOTAL 0.6 MG/DL (0.3-1.2); BLOOD UREA NITROGEN 32 MG/DL (9-23); CALCIUM LEVEL 8.7 MG/DL (8.3-10.6); CARBON DIOXIDE LEVEL 26 MMOL/L (20-31); CHLORIDE LEVEL 106 MMOL/L (98-107); CHOLESTEROL LEVEL 121 MG/DL (<200); CHOLESTEROL RISK RATIO 3.44 (<5); CREATININE FOR GFR 0.92 MG/DL (0.70-1.30); GLOMERULAR FILTRATION RATE > 60.0 (>49); GLUCOSE, FASTING 97 MG/DL (74-106); HDL CHOLESTEROL 35.1 MG/DL (>40); LDL CHOLESTEROL 55.3 MG/DL (<100); NON-HDL-C 85.9 MG/DL; POTASSIUM SERUM 4.1 MMOL/L (3.5-5.1); SODIUM LEVEL 145 MMOL/L (136-145); TRIGLYCERIDES LEVEL 153 MG/DL (<150)
[2024-12-30 17:58] LABS: THYROID STIMULATING HORMONE 5.098 uIU/ML (0.55-4.78)
== END ==
LOC: M SFHCLERA 09:23
PROVIDERS: ATTEND Family Medicine
DX: E11.22 Type 2 diabetes mellitus with diabetic chronic kidney disease (principal); E78.2 Mixed hyperlipidemia; E03.9 Hypothyroidism, unspecified

== ENCOUNTER → 2025-02-28 | Outpatient (CLI) | payer MEDICARE, MEDICAID ==
[2025-02-28 14:19] LABS: HEMOGLOBIN A1c 6.4 % (4.0-6.0)
[2025-02-28 14:29] LABS: CREATININE, URINE 95.8 MG/DL; MAU/CREAT RATIO 208.7 MCG/MG (0.0-30.0)
[2025-02-28 14:33] LABS: ALBUMIN 3.6 G/DL (3.2-5.2); ALKALINE PHOSPHATASE 86 U/L (40-129); ALT/SGPT 35 U/L (7.0-40); AST/SGOT 17 U/L (<34); BILIRUBIN,TOTAL 0.6 MG/DL (0.3-1.2); BLOOD UREA NITROGEN 39 MG/DL (9-23); CALCIUM LEVEL 9.4 MG/DL (8.3-10.6); CARBON DIOXIDE LEVEL 30 MMOL/L (20-31); CHLORIDE LEVEL 104 MMOL/L (98-107); CHOLESTEROL LEVEL 124 MG/DL (<200); CHOLESTEROL RISK RATIO 3.51 (<5); CREATININE FOR GFR 1.08 MG/DL (0.70-1.30); GLOMERULAR FILTRATION RATE > 60.0 (>49); GLUCOSE, FASTING 199 MG/DL (74-106); HDL CHOLESTEROL 35.3 MG/DL (>40); LDL CHOLESTEROL 44.3 MG/DL (<100); NON-HDL-C 88.7 MG/DL; POTASSIUM SERUM 4.8 MMOL/L (3.5-5.1); SODIUM LEVEL 142 MMOL/L (136-145); TRIGLYCERIDES LEVEL 222 MG/DL (<150)
== END ==
LOC: M PLALAB 09:05
PROVIDERS: ATTEND Family Medicine
DX: E11.22 Type 2 diabetes mellitus with diabetic chronic kidney disease (principal); E78.2 Mixed hyperlipidemia; E03.9 Hypothyroidism, unspecified

== ENCOUNTER → 2025-09-10 | Outpatient (CLI) | payer MEDICARE, MEDICAID ==
[~2025-09-10] MED LIST changes: -BYDU2INJ7 SC; +EXEN2AUT SC; -EZET10TA21 PO; +EZET10TA57 PO; -FLOM0.4C39 PO; +TAMS-18 PO; -VITA100024 PO; +VITA100051 PO
[2025-09-10 11:22] LABS: ESTIMATED AVERAGE GLUCOSE 166.0 MG/DL (60-110)
[2025-09-10 11:37] LABS: ALT/SGPT 34.0 U/L (7.0-40); AST/SGOT 18.0 U/L (<34); CALCIUM LEVEL 9.1 MG/DL (8.3-10.6); CARBON DIOXIDE LEVEL 26.0 MMOL/L (20-31); CHLORIDE LEVEL 104.0 MMOL/L (98-107); CREATININE FOR GFR 0.99 MG/DL (0.70-1.30); GLOMERULAR FILTRATION RATE 83.0 (>49); POTASSIUM SERUM 3.8 MMOL/L (3.5-5.1); SODIUM LEVEL 143.0 MMOL/L (136-145)
== END ==
LOC: M PLALAB 08:58
PROVIDERS: ATTEND Family Medicine
DX: E11.22 Type 2 diabetes mellitus with diabetic chronic kidney disease (principal)